=== PATIENT | male | born 1935 | race Caucasian/White ===

== ENCOUNTER → 2016-11-06 | Outpatient (REF) | payer MEDICARE | LOC: M LABDRAWP 15:37 | PROVIDERS: ATTEND Urology | DX: R31.9 Hematuria, unspecified (principal); Z85.46 Personal history of malignant neoplasm of prostate ==

== ENCOUNTER 2016-12-11 07:48 | Emergency (ER) | payer MEDICARE ==
[~2016-12-11] VITALS: Ht 172.7 cm; Wt 93.0 kg
[2016-12-11] MEDS ORDERED: CIAL5TAB (08:14)
[2016-12-11] MEDS ORDERED: HYDR25T (08:14)
[2016-12-11] MEDS ORDERED: CARV6.25 PO (08:14)
[2016-12-11] MEDS ORDERED: [UNRECOGNIZED DRUG - CODE] (08:14)
[2016-12-11] MEDS ORDERED: LATA5OPD (08:14)
[2016-12-11] MEDS ORDERED: HYDR25TA6 (08:14)
[2016-12-11 08:20] VITALS: BP 162/100
[2016-12-11] MEDS ORDERED: ISOVUE-370 76% 100ML VIAL (Q9967) As Ordered ONE (10:46)
--- NOTE | 2016-12-11 11:29 | REP ---
Clinical: Abdominal pain and hematuria. Technique: Axial precontrast, contrast enhanced, and delayed images of the abdomen and pelvis using 100 ml Isovue 370 intravenous contrast material with coronal and sagittal re-formations. Comparison: 12/08/2015. Findings: Evaluation of the urinary tract system demonstrates atrophic, but relatively normal appearance of the kidneys and ureters with sub centimeter simple cysts, but no evidence for nephrolithiasis, hydroureternephrosis or obstructing ureteral calculi. Evaluation of the bladder demonstrates a Santos catheter and small amount of hemorrhagic debris which may be related to catheterization. Liver, spleen, pancreas, gallbladder, and bilateral adrenal glands are normal. The enteric system is without obstruction or acute inflammatory process. Colonic diverticulosis noted without acute diverticulitis. Pelvis demonstrates previous prostatic seeding as well as large fat containing inguinal hernias (right greater than left). No ascites. No free air. No intraperitoneal or retroperitoneal adenopathy. No mass lesion. Vasculature without aneurysm or dissection. Musculoskeletal structures demonstrate chronic degenerative changes and stable small sclerotic foci unchanged compared to 12/08/2015. Lung bases clear. Impression: 1. Small amount of hemorrhagic debris within the bladder may be related to Santos catheterization and possibly related to findings of hematuria. Kidneys demonstrate cortical atrophic changes without further urinary tract abnormality. 2. Diverticulosis without acute diverticulitis. 3. Large bilateral fat containing inguinal hernias. 4. No further acute intra-abdominal or pelvic pathology appreciated. Signed by Joel Richards MD 12/11/2016 11:20 A
--- NOTE | 2016-12-12 20:05 | ED PDOC ---
Post-Departure Follow-Up devon bhatt and guerita faxed formal report of ct abd/p for fu Xochitl Pelayo MD Dec 12, 2016 20:05
== END 2016-12-11 12:53 | disposition home or self-care (01) ==
LOC: M ED 09:02
DX: R31.9 Hematuria, unspecified (principal); R33.9 Retention of urine, unspecified
CPT/HCPCS: 51702; 74178; 99284; Q9967

== ENCOUNTER → 2016-12-21 | Outpatient (REF) | payer MEDICARE ==
[~2016-12-21] MED LIST: CARV6.25 PO; CIAL5TAB; HYDR25T; HYDR25TA6; LATA5OPD; [UNRECOGNIZED DRUG - CODE]
[2016-12-21 11:48] LABS: MICROSCOPIC INDICATED? MAN YES (NO)
[2016-12-21 11:57] LABS: BACTERIA, URINE LARGE AMOUNT; MICROSCOPIC EXAM PERFORMED; RBC, URINE TNTC /hpf (0-3); WBC, URINE TNTC /hpf (0-3)
== END ==
LOC: M SFHCPLAZ 11:23
PROVIDERS: ATTEND Family Medicine
DX: R35.0 Frequency of micturition (principal)
CPT/HCPCS: 81000; 87088; 87186; G0463

== ENCOUNTER → 2017-02-15 | Outpatient (REF) | payer MEDICARE ==
[2017-02-15 14:21] LABS: BACTERIA, URINE NONE SEEN; HYALINE CAST, URINE NONE SEEN /lpf (0-1); MICROSCOPIC EXAM PERFORMED; RBC, URINE 0-1 /hpf (0-3); SQUAMOUS EPITHELIAL CELL URINE NONE SEEN /hpf (SMALL AMT)
== END ==
LOC: M LAB REF 11:35
PROVIDERS: ATTEND Urology
DX: R31.9 Hematuria, unspecified (principal)

== ENCOUNTER → 2017-06-05 | Outpatient (REF) | payer MEDICARE ==
[~2017-06-05] MED LIST changes: +HYDR-3363; -HYDR25T
[2017-06-05 12:09] LABS: MEAN CORPUSCULAR HEMOGLOBIN 31.2 pg (27.0-33.0); MEAN CORPUSCULAR HGB CONC 34.5 g/dl (32.0-36.5); MEAN CORPUSCULAR VOLUME 90.6 fl (80.0-96.0); RED CELL DISTRIBUTION WIDTH 12.7 % (11.5-14.5); WHITE BLOOD COUNT 5.3 K/mm3 (4.0-10.0)
[2017-06-05 12:26] LABS: ALBUMIN 3.6 GM/DL (3.2-5.2); ALBUMIN/GLOBULIN RATIO 1.33 (1.00-1.93); ALKALINE PHOSPHATASE 68 U/L (45-117); ALT/SGPT 29 U/L (12-78); ANION GAP 9 MEQ/L (8-16); AST/SGOT 17 U/L (15-37); BILIRUBIN,TOTAL 0.9 MG/DL (0.2-1.0); BLOOD UREA NITROGEN 23 MG/DL (7-18); CALCIUM LEVEL 8.5 MG/DL (8.8-10.2); CARBON DIOXIDE LEVEL 31 MEQ/L (21-32); CHLORIDE LEVEL 104 MEQ/L (98-107); CHOLESTEROL LEVEL 176 MG/DL (<200); CREATININE FOR GFR 1.05 MG/DL (0.70-1.30); GLOMERULAR FILTRATION RATE > 60.0 (>35); GLUCOSE, FASTING 90 MG/DL (83-110); POTASSIUM SERUM 3.7 MEQ/L (3.5-5.1); SODIUM LEVEL 144 MEQ/L (136-145); TOTAL PROTEIN 6.3 GM/DL (6.4-8.2); TRIGLYCERIDES LEVEL 123 MG/DL (<150)
== END ==
LOC: M SFHCPLAZ 08:33
PROVIDERS: ATTEND Family Medicine
DX: I25.9 Chronic ischemic heart disease, unspecified (principal); E78.00 Pure hypercholesterolemia, unspecified; Z85.820 Personal history of malignant melanoma of skin

== ENCOUNTER 2017-06-29 23:27 | Emergency (ER) | payer MEDICARE ==
[~2017-06-29] VITALS: Ht 172.7 cm; Wt 87.2 kg
[2017-06-29 23:28] VITALS: BP 201/111
[2017-06-30] MEDS ORDERED: NS 500 ML IV ONE (00:30)
[2017-06-30] MEDS ORDERED: MORPHINE 2 MG/ML 1ML SYRINGE IV ONE (00:30)
[2017-06-30 00:32] LABS: BASO # 0.1 10^3/uL (0.0-0.2); BASO % 0.7 % (0.0-1.0); EOS # 0.1 10^3/uL (0.0-0.50); IMMATURE GRANULOCYTE % 0.7 % (0-0); LYMPH # 1.8 10^3/uL (1.5-4.5); LYMPH % 25.6 % (24.0-44.0); MEAN CORPUSCULAR HEMOGLOBIN 29.9 pg (27.0-33.0); MEAN CORPUSCULAR HGB CONC 33.8 g/dl (32.0-36.5); MEAN CORPUSCULAR VOLUME 88.4 fl (80.0-96.0); MONO % 14.7 % (0.0-5.0); NEUTROPHILS # 3.9 10^3/uL (1.8-7.7); NEUTROPHILS % 56.3 % (36.0-66.0); PLATELET COUNT, AUTOMATED 202 10^3/uL (150-450); RED CELL DISTRIBUTION WIDTH 13.2 % (11.5-14.5)
[2017-06-30 00:56] LABS: INR 0.91
[2017-06-30 00:57] LABS: ANION GAP 5 MEQ/L (8-16); BLOOD UREA NITROGEN 24 MG/DL (7-18); CALCIUM LEVEL 8.8 MG/DL (8.8-10.2); CARBON DIOXIDE LEVEL 31 MEQ/L (21-32); CHLORIDE LEVEL 105 MEQ/L (98-107); CREATININE FOR GFR 1.07 MG/DL (0.70-1.30); GLOMERULAR FILTRATION RATE > 60.0 (>35); GLUCOSE, FASTING 107 MG/DL (83-110); POTASSIUM SERUM 3.1 MEQ/L (3.5-5.1); SODIUM LEVEL 141 MEQ/L (136-145)
--- NOTE | 2017-07-02 07:49 | ECGEPIP ---
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
== END 2017-06-30 03:23 | disposition home or self-care (01) ==
LOC: M ED 23:27
DX: R31.9 Hematuria, unspecified (principal); R33.9 Retention of urine, unspecified; I10 Essential (primary) hypertension; I25.9 Chronic ischemic heart disease, unspecified; H40.9 Unspecified glaucoma; Z85.46 Personal history of malignant neoplasm of prostate; Z79.899 Other long term (current) drug therapy; Z88.0 Allergy status to penicillin; Z88.2 Allergy status to sulfonamides; Z87.891 Personal history of nicotine dependence

== ENCOUNTER → 2017-07-06 | Outpatient (REF) | payer MEDICARE ==
[2017-07-06 19:33] LABS: MEAN CORPUSCULAR HEMOGLOBIN 29.7 pg (27.0-33.0); MEAN CORPUSCULAR HGB CONC 33.3 g/dl (32.0-36.5); MEAN CORPUSCULAR VOLUME 89.3 fl (80.0-96.0); PLATELET COUNT, AUTOMATED 271 10^3/uL (150-450); RED CELL DISTRIBUTION WIDTH 13.3 % (11.5-14.5); WHITE BLOOD COUNT 6.5 10^3/uL (4.0-10.0)
[2017-07-06 19:36] LABS: CALCIUM LEVEL 9.3 MG/DL (8.8-10.2); CREATININE FOR GFR 1.25 MG/DL (0.70-1.30); GLOMERULAR FILTRATION RATE 58.9 (>35); MAGNESIUM LEVEL 2.2 MG/DL (1.8-2.4); POTASSIUM SERUM 3.9 MEQ/L (3.5-5.1)
== END ==
LOC: M SFHCADAM 13:43
PROVIDERS: ATTEND Family Medicine
DX: R31.0 Gross hematuria (principal); E87.6 Hypokalemia; Z23 Encounter for immunization
CPT/HCPCS: 80048; 83735; 85027; 90662; G0008; G0463

== ENCOUNTER → 2017-09-07 | Outpatient (REF) | payer MEDICARE | LOC: M LABDRAWP 11:27 | PROVIDERS: ATTEND Urology | DX: R31.9 Hematuria, unspecified (principal); Z85.46 Personal history of malignant neoplasm of prostate ==

== ENCOUNTER → 2017-10-11 | Outpatient (REF) | payer MEDICARE ==
[2017-10-11 14:44] LABS: APPEARANCE, URINE MANUAL TURBID (CLEAR); COLOR, URINE MANUAL RED (YELLOW); HEMATOCRIT 50.8 % (42.0-52.0); HEMOGLOBIN 16.8 g/dl (14.0-18.0); MEAN CORPUSCULAR HEMOGLOBIN 29.6 pg (27.0-33.0); MEAN CORPUSCULAR HGB CONC 33.1 g/dl (32.0-36.5); MEAN CORPUSCULAR VOLUME 89.4 fl (80.0-96.0); PLATELET COUNT, AUTOMATED 233 10^3/uL (150-450); RED BLOOD COUNT 5.68 10^6/uL (4.30-6.10); RED CELL DISTRIBUTION WIDTH 13.2 % (11.5-14.5); WHITE BLOOD COUNT 6.8 10^3/uL (4.0-10.0)
[2017-10-11 14:45] LABS: BILIRUBIN, URINE MANUAL NEGATIVE (NEGATIVE); BLOOD URINE MANUAL POSITIVE (NEGATIVE); GLUCOSE, URINE (UA) MANUAL NEGATIVE (NEGATIVE); KETONE, URINE MANUAL NEGATIVE (NEGATIVE); LEUKOCYTE ESTERASE, URINE MAN POSITIVE (NEGATIVE); MICROSCOPIC INDICATED? MAN YES (NO); NITRITE, URINE MANUAL NEGATIVE (NEGATIVE); PROTEIN, URINE MANUAL 2+ mg/dL (NEGATIVE); SPECIFIC GRAVITY,URINE MANUAL 1.015 (1.002-1.035); UROBILINOGEN, URINE MANUAL NORMAL (NORMAL)
[2017-10-11 14:54] LABS: BACTERIA, URINE SMALL AMOUNT; MICROSCOPIC EXAM PERFORMED; RBC, URINE TNTC /hpf (0-3); SQUAMOUS EPITHELIAL CELL URINE NONE SEEN /hpf (SMALL AMT)
[2017-10-11 14:55] LABS: HYALINE CAST, URINE NONE SEEN /lpf (0-1)
[2017-10-11 14:57] LABS: ANION GAP 6 MEQ/L (8-16); BLOOD UREA NITROGEN 18 MG/DL (7-18); CARBON DIOXIDE LEVEL 33 MEQ/L (21-32); CHLORIDE LEVEL 104 MEQ/L (98-107); CREATININE FOR GFR 1.21 MG/DL (0.70-1.30); GLOMERULAR FILTRATION RATE > 60.0 (>35); GLUCOSE, FASTING 109 MG/DL (70-100); POTASSIUM SERUM 3.9 MEQ/L (3.5-5.1); SODIUM LEVEL 143 MEQ/L (136-145)
== END ==
LOC: M SFHCADAM 09:02
DX: R31.0 Gross hematuria (principal)
CPT/HCPCS: 80048

== ENCOUNTER → 2017-12-17 | Outpatient (REF) | payer MEDICARE ==
[2017-12-17 11:43] LABS: HEMATOCRIT 47.9 % (42.0-52.0); HEMOGLOBIN 15.7 g/dl (13.5-17.5); MEAN CORPUSCULAR HEMOGLOBIN 29.2 pg (27.0-33.0); MEAN CORPUSCULAR HGB CONC 32.8 g/dl (32.0-36.5); PLATELET COUNT, AUTOMATED 279 10^3/uL (150-450); RED BLOOD COUNT 5.38 10^6/uL (4.30-6.10); RED CELL DISTRIBUTION WIDTH 13.3 % (11.5-14.5); WHITE BLOOD COUNT 5.9 10^3/uL (4.0-10.0)
[2017-12-17 12:28] LABS: ALBUMIN 3.8 GM/DL (3.2-5.2); ALBUMIN/GLOBULIN RATIO 1.27 (1.00-1.93); ALKALINE PHOSPHATASE 83 U/L (45-117); ALT/SGPT 22 U/L (12-78); ANION GAP 7 MEQ/L (8-16); AST/SGOT 15 U/L (7-37); BILIRUBIN,TOTAL 0.8 MG/DL (0.2-1.0); BLOOD UREA NITROGEN 27 MG/DL (7-18); CALCIUM LEVEL 8.9 MG/DL (8.8-10.2); CARBON DIOXIDE LEVEL 30 MEQ/L (21-32); CHLORIDE LEVEL 109 MEQ/L (98-107); CHOLESTEROL LEVEL 177 MG/DL (<200); CHOLESTEROL RISK RATIO 4.657 (<5); CREATININE FOR GFR 1.17 MG/DL (0.70-1.30); GLOMERULAR FILTRATION RATE > 60.0 (>35); GLUCOSE, FASTING 91 MG/DL (70-100); HDL CHOLESTEROL 38 MG/DL (>40); LDL CHOLESTEROL 113.8 MG/DL (<100); NON-HDL-C 139 MG/DL; PROSTATIC SPECIFIC AG MONITOR < 0.01 NG/ML (< 4.0); SODIUM LEVEL 146 MEQ/L (136-145); TOTAL PROTEIN 6.8 GM/DL (6.4-8.2); TRIGLYCERIDES LEVEL 126 MG/DL (<150)
== END ==
LOC: M SFHCPLAZ 09:07
DX: I25.2 Old myocardial infarction (principal); E78.00 Pure hypercholesterolemia, unspecified; C61 Malignant neoplasm of prostate
CPT/HCPCS: 80053

== ENCOUNTER 2018-01-10 23:45 | Emergency (ER) | payer MEDICARE ==
[2018-01-11] MEDS: LIDOCAINE 2% JELLY 30 ML TOP (02:07)
== END 2018-01-11 03:00 | disposition home or self-care (01) ==
LOC: M ED 23:45
DX: R33.9 Retention of urine, unspecified (principal); I25.10 Atherosclerotic heart disease of native coronary artery without angina pectoris; I10 Essential (primary) hypertension; Z95.5 Presence of coronary angioplasty implant and graft; Z98.890 Other specified postprocedural states; Z88.0 Allergy status to penicillin; Z88.8 Allergy status to other drugs, medicaments and biological substances; Z88.2 Allergy status to sulfonamides
CPT/HCPCS: 51703

== ENCOUNTER 2018-01-11 10:50 | Emergency (ER) | payer MEDICARE ==
[2018-01-11 12:21] LABS: KETONE, URINE AUTO RFX TRACE mg/dL (NEGATIVE); LEUKOCYTE ESTERASE UR AUTO RFX NEGATIVE (NEGATIVE); NITRITE, URINE AUTO RFX NEGATIVE (NEGATIVE); RBC, URINE AUTO RFX TNTC /HPF (0-3); SPECIFIC GRAVITY UR AUTO RFX 1.009 (1.002-1.035); SQUAM EPITHELIAL CELL UR AURFX 0 /HPF (0-6)
[2018-01-11 12:53] LABS: WBC, URINE AUTO RFX 11 /HPF (0-3)
== END 2018-01-11 13:13 | disposition home or self-care (01) ==
LOC: M ED 10:50
DX: T83.098A Other mechanical complication of other urinary catheter, initial encounter (principal); R31.9 Hematuria, unspecified; I25.10 Atherosclerotic heart disease of native coronary artery without angina pectoris; I25.2 Old myocardial infarction; I10 Essential (primary) hypertension; Z79.899 Other long term (current) drug therapy; Z95.1 Presence of aortocoronary bypass graft; Z98.890 Other specified postprocedural states; Z92.3 Personal history of irradiation; Z85.46 Personal history of malignant neoplasm of prostate; Z87.891 Personal history of nicotine dependence; Z88.0 Allergy status to penicillin; Z88.2 Allergy status to sulfonamides; Z88.8 Allergy status to other drugs, medicaments and biological substances
CPT/HCPCS: 81001

== ENCOUNTER → 2018-03-14 | Outpatient (REF) | payer MEDICARE ==
[2018-03-14 19:57] LABS: APPEARANCE, URINE HAZY (CLEAR); BACTERIA, URINE AUTO 1+ (NEGATIVE); BILIRUBIN, URINE AUTO NEGATIVE (NEGATIVE); BLOOD, URINE BLOOD 1+ (NEGATIVE); COLOR, URINE YELLOW (YELLOW); GLUCOSE, URINE (UA) AUTO NEGATIVE (NEGATIVE); KETONE, URINE AUTO NEGATIVE (NEGATIVE); LEUKOCYTE ESTERASE, URINE AUTO 1+ (NEGATIVE); MUCUS, URINE SMALL (NEGATIVE); NITRITE, URINE AUTO POSITIVE (NEGATIVE); PROTEIN, URINE AUTO NEGATIVE (NEGATIVE); RBC, URINE AUTO 20 /HPF (0-3); SQUAMOUS EPITHELIAL CELL UR AU 0 /HPF (0-6); UROBILINOGEN, URINE AUTO 0.2 mg/dL (0.0-2.0); WBC, URINE AUTO 63 /HPF (0-3)
[2018-03-14 19:59] LABS: PROSTATIC SPECIFIC AG MONITOR < 0.01 NG/ML (< 4.0)
== END ==
LOC: M LABDRWAD 19:17
DX: R31.9 Hematuria, unspecified (principal); Z85.46 Personal history of malignant neoplasm of prostate
CPT/HCPCS: 84153

== ENCOUNTER → 2018-04-02 | Outpatient (REF) | payer MEDICARE | LOC: M LABDRWAD 10:34 | DX: R31.0 Gross hematuria (principal) | CPT/HCPCS: 87186 ==

== ENCOUNTER → 2018-04-17 | Outpatient (REF) | payer MEDICARE | LOC: M SFHCADAM 12:13 | DX: N39.0 Urinary tract infection, site not specified (principal) | CPT/HCPCS: 87086 ==

== ENCOUNTER → 2018-08-28 | Outpatient (CLI) | payer MEDICARE ==
[~2018-08-28] MED LIST changes: +FLOM0.4C39 PO
--- NOTE | 2018-08-28 16:51 | REP ---
KUB: Three views presented. History: Eructation. Findings: The bowel gas pattern is normal. There is degenerative disc and facet disease in the thoracolumbar spine. A complex curvature is seen in the lumbar spine dextroconvex in the upper and levoconvex in the lower. There is a bone island in the iliac bone on the right. There are metallic radiotherapy seeds in the prostate. Psoas margins are symmetric. No mass or organomegaly is seen. Impression: No acute abnormality. Electronically Signed by Kory Azevedo MD 08/28/2018 05:10 P
== END ==
LOC: M ADAMS 14:13
PROVIDERS: ATTEND Family Medicine
DX: M51.35 Other intervertebral disc degeneration, thoracolumbar region (principal); M53.86 Other specified dorsopathies, lumbar region; R14.2 Eructation
CPT/HCPCS: 74018; G0463

== ENCOUNTER → 2018-10-25 | Outpatient (REF) | payer MEDICARE | LOC: M SFHCPLAZ 19:02 | PROVIDERS: ATTEND Dermatology | DX: D22.30 Melanocytic nevi of unspecified part of face (principal) ==

== ENCOUNTER → 2018-12-11 | Outpatient (REF) | payer MEDICARE ==
[2018-12-11 12:22] LABS: HEMATOCRIT 50.9 % (42.0-52.0); HEMOGLOBIN 16.9 g/dl (13.5-17.5); MEAN CORPUSCULAR HEMOGLOBIN 29.8 pg (27.0-33.0); MEAN CORPUSCULAR HGB CONC 33.2 g/dl (32.0-36.5); MEAN CORPUSCULAR VOLUME 89.8 fl (80.0-96.0); PLATELET COUNT, AUTOMATED 242 10^3/uL (150-450); RED BLOOD COUNT 5.67 10^6/uL (4.30-6.10); WHITE BLOOD COUNT 6.3 10^3/uL (4.0-10.0)
[2018-12-11 12:52] LABS: ALT/SGPT 28 U/L (12-78); BLOOD UREA NITROGEN 21 MG/DL (7-18); CARBON DIOXIDE LEVEL 33 MEQ/L (21-32); CHLORIDE LEVEL 102 MEQ/L (98-107); CHOLESTEROL LEVEL 190 MG/DL (<200); CHOLESTEROL RISK RATIO 4.634 (<5); CREATININE FOR GFR 1.16 MG/DL (0.70-1.30); GLOMERULAR FILTRATION RATE > 60.0 (>35); GLUCOSE, FASTING 96 MG/DL (70-100); HDL CHOLESTEROL 41 MG/DL (>40); LDL CHOLESTEROL 120 MG/DL (<100); NON-HDL-C 149 MG/DL; POTASSIUM SERUM 4.5 MEQ/L (3.5-5.1); PROSTATIC SPECIFIC AG MONITOR < 0.01 NG/ML (< 4.00); SODIUM LEVEL 141 MEQ/L (136-145); TOTAL PROTEIN 6.6 GM/DL (6.4-8.2); TRIGLYCERIDES LEVEL 143 MG/DL (<150)
== END ==
LOC: M SFHCADAM 08:20
PROVIDERS: ATTEND Family Medicine
DX: I25.9 Chronic ischemic heart disease, unspecified (principal); N02.9 Recurrent and persistent hematuria with unspecified morphologic changes; E78.00 Pure hypercholesterolemia, unspecified; R73.03 Prediabetes; C61 Malignant neoplasm of prostate; R31.9 Hematuria, unspecified

== ENCOUNTER → 2019-05-02 | Outpatient (REF) | payer MEDICARE ==
[~2019-05-02] MED LIST changes: +LATA0.0013; -LATA5OPD
[2019-05-02 11:26] LABS: HEMATOCRIT 49.5 % (42.0-52.0); HEMOGLOBIN 16.5 g/dl (13.5-17.5); MEAN CORPUSCULAR HEMOGLOBIN 29.9 pg (27.0-33.0); MEAN CORPUSCULAR HGB CONC 33.3 g/dl (32.0-36.5); MEAN CORPUSCULAR VOLUME 89.8 fl (80.0-96.0); PLATELET COUNT, AUTOMATED 233 10^3/uL (150-450); RED BLOOD COUNT 5.51 10^6/uL (4.30-6.10); WHITE BLOOD COUNT 5.9 10^3/uL (4.0-10.0)
[2019-05-02 11:58] LABS: CALCIUM LEVEL 8.9 MG/DL (8.8-10.2); CREATININE FOR GFR 1.37 MG/DL (0.70-1.30); GLOMERULAR FILTRATION RATE 52.7 (>35); POTASSIUM SERUM 3.9 MEQ/L (3.5-5.1)
== END ==
LOC: M SFHCADAM 08:52
PROVIDERS: ATTEND Family Medicine
DX: C61 Malignant neoplasm of prostate (principal); I11.9 Hypertensive heart disease without heart failure

== ENCOUNTER → 2019-06-03 | Outpatient (REF) | payer MEDICARE | LOC: M SFHCPLAZ 17:10 | PROVIDERS: ATTEND Dermatology | DX: L57.0 Actinic keratosis (principal) ==

== ENCOUNTER → 2019-11-04 | Outpatient (REF) | payer MEDICARE ==
[2019-11-04 13:28] LABS: HEMATOCRIT 51.2 % (42.0-52.0); HEMOGLOBIN 16.6 g/dl (13.5-17.5); MEAN CORPUSCULAR HEMOGLOBIN 29.6 pg (27.0-33.0); MEAN CORPUSCULAR HGB CONC 32.4 g/dl (32.0-36.5); MEAN CORPUSCULAR VOLUME 91.4 fl (80.0-96.0); PLATELET COUNT, AUTOMATED 261 10^3/uL (150-450); WHITE BLOOD COUNT 5.6 10^3/uL (4.0-10.0)
[2019-11-04 13:44] LABS: ALT/SGPT 29 U/L (12-78); BILIRUBIN,TOTAL 1.2 MG/DL (0.2-1.0); BLOOD UREA NITROGEN 24 MG/DL (7-18); CALCIUM LEVEL 8.8 MG/DL (8.8-10.2); CARBON DIOXIDE LEVEL 32 MEQ/L (21-32); CHLORIDE LEVEL 105 MEQ/L (98-107); CHOLESTEROL LEVEL 192 MG/DL (<200); CREATININE FOR GFR 1.22 MG/DL (0.70-1.30); GLOMERULAR FILTRATION RATE > 60.0 (>35); GLUCOSE, FASTING 99 MG/DL (70-100); HDL CHOLESTEROL 40 MG/DL (>40); LDL CHOLESTEROL 123 MG/DL (<100); NON-HDL-C 152 MG/DL; POTASSIUM SERUM 3.8 MEQ/L (3.5-5.1); PROSTATIC SPECIFIC AG MONITOR < 0.01 NG/ML (< 4.00); SODIUM LEVEL 142 MEQ/L (136-145); TRIGLYCERIDES LEVEL 145 MG/DL (<150)
[2019-11-04 14:41] LABS: HEMOGLOBIN A1c 6.1 %
== END ==
LOC: M SFHCADAM 09:17
PROVIDERS: ATTEND Family Medicine
DX: I86.8 Varicose veins of other specified sites (principal); R73.03 Prediabetes; E78.5 Hyperlipidemia, unspecified; C61 Malignant neoplasm of prostate

== ENCOUNTER → 2019-11-12 | Outpatient (REF) | payer MEDICARE ==
[2019-11-12 15:00] LABS: APPEARANCE, URINE CLOUDY (CLEAR); BACTERIA, URINE AUTO 3+ (NEGATIVE); BILIRUBIN, URINE AUTO NEGATIVE (NEGATIVE); BLOOD, URINE BLOOD 3+ (NEGATIVE); COLOR, URINE YELLOW (YELLOW); GLUCOSE, URINE (UA) AUTO NEGATIVE (NEGATIVE); KETONE, URINE AUTO NEGATIVE (NEGATIVE); LEUKOCYTE ESTERASE, URINE AUTO 2+ (NEGATIVE); MUCUS, URINE SMALL (NEGATIVE); NITRITE, URINE AUTO NEGATIVE (NEGATIVE); PROTEIN, URINE AUTO 1+ mg/dL (NEGATIVE); RBC, URINE AUTO TNTC /HPF (0-3); SPECIFIC GRAVITY URINE AUTO 1.015 (1.002-1.035); SQUAMOUS EPITHELIAL CELL UR AU 0 /HPF (0-6); UROBILINOGEN, URINE AUTO 0.2 mg/dL (0.0-2.0); WBC, URINE AUTO 180 /HPF (0-3)
== END ==
LOC: M SFHCADAM 09:59
PROVIDERS: ATTEND Family Medicine
DX: R30.0 Dysuria (principal)

== ENCOUNTER 2020-02-13 17:55 | Inpatient (IN) | payer MEDICARE, OTHER ==
[~2020-02-13] VITALS: Ht 167.6 cm; Wt 89.0 kg
[~2020-02-13 17:55] MED LIST changes: -HYDR-3363; +HYDR-3363 PO; -[UNRECOGNIZED DRUG - CODE]; +[UNRECOGNIZED DRUG - CODE] TOP
[2020-02-13 18:37] LABS: BASO % 0.1 % (0.0-1.0); HEMATOCRIT 48.8 % (42.0-52.0); HEMOGLOBIN 16.5 g/dl (13.5-17.5); LYMPH # 0.4 10^3/uL (1.5-5.0); LYMPH % 4.3 % (24.0-44.0); MEAN CORPUSCULAR HEMOGLOBIN 30.1 pg (27.0-33.0); MEAN CORPUSCULAR HGB CONC 33.8 g/dl (32.0-36.5); MEAN CORPUSCULAR VOLUME 88.9 fl (80.0-96.0); MONO # 0.3 10^3/uL (0.0-0.8); MONO % 3.6 % (0.0-5.0); NEUTROPHILS # 8.1 10^3/uL (1.5-8.5); NEUTROPHILS % 91.8 % (36.0-66.0); PLATELET COUNT, AUTOMATED 221 10^3/uL (150-450); RED BLOOD COUNT 5.49 10^6/uL (4.30-6.10); WHITE BLOOD COUNT 8.9 10^3/uL (4.0-10.0)
[2020-02-13] MEDS ORDERED: GI COCKTAIL 50ML BTL(HYOSCYAMINE/MAALOX/LIDOCAINE VISCOUS)(1:3:1) PO ONE (18:45)
[2020-02-13 19:08] LABS: ALBUMIN 3.8 GM/DL (3.2-5.2); ALT/SGPT 800 U/L (12-78); BILIRUBIN,DIRECT 2.5 MG/DL (0.0-0.2); BLOOD UREA NITROGEN 27 MG/DL (7-18); CALCIUM LEVEL 9.2 MG/DL (8.8-10.2); CARBON DIOXIDE LEVEL 29 MEQ/L (21-32); CHLORIDE LEVEL 104 MEQ/L (98-107); GLOMERULAR FILTRATION RATE > 60.0 (>35); GLUCOSE, FASTING 125 MG/DL (70-100); LIPASE 88 U/L (73-393); NT-PRO BNP 246 PG/ML (<450); POTASSIUM SERUM 3.5 MEQ/L (3.5-5.1); SODIUM LEVEL 140 MEQ/L (136-145); TOTAL PROTEIN 6.5 GM/DL (6.4-8.2)
--- NOTE | 2020-02-13 20:54 | REPVR ---
PROCEDURE INFORMATION: Exam: US Abdomen Limited, Right Upper Quadrant Exam date and time: 02/13/2020 8:37 PM Age: 84 years old Clinical indication: Abdominal pain; Acute; Additional info: Elevated lfts TECHNIQUE: Imaging protocol: Real-time ultrasound of the abdomen with image documentation. Examination was focused on the right upper quadrant. COMPARISON: No relevant prior studies available. FINDINGS: Liver: Normal. No masses. Gallbladder: Irregularly-shaped echogenic masslike lesion within the lumen of the gallbladder which does not move with change inpatient position. Finding likely represents a mixture of sludge and gallstones. A gallbladder mass is not absolutely excluded. Common bile duct: The common bile duct measures 6.2 mm. No mass or choledocholithiasis. Pancreas: Visualized pancreas is unremarkable. Right kidney: Right kidney measures 11.8 x 4.7 x 4.8 cm. Small upper pole cyst measures 1.5 x 0.8 x 0.9 cm. No complex features demonstrated. IMPRESSION: Irregularly-shaped echogenic masslike lesion within the lumen of the gallbladder which does not move with change inpatient position. Finding likely represents a mixture of sludge and gallstones. A gallbladder mass is not absolutely excluded. Electronically signed by: Pete Dacosta On 02/13/2020 20:53:30 PM
[2020-02-13] MEDS ORDERED: ISOVUE-370 76% 100ML VIAL As Ordered ONE (20:55)
--- NOTE | 2020-02-13 21:57 | REPVR ---
PROCEDURE INFORMATION: Exam: CT Abdomen And Pelvis With Contrast Exam date and time: 02/13/2020 9:07 PM Age: 84 years old Clinical indication: Abdominal pain; Generalized; Additional info: Chest pain TECHNIQUE: Imaging protocol: Computed tomography of the abdomen and pelvis with intravenous contrast. Radiation optimization: All CT scans at this facility use at least one of these dose optimization techniques: automated exposure control; mA and/or kV adjustment per patient size (includes targeted exams where dose is matched to clinical indication); or iterative reconstruction. Contrast material: ISOVUE 370; Contrast volume: 100 ml; Contrast route: IV; COMPARISON: CT ABD PELVIS W/O FOL BY WIT 12/11/2016 10:49 AM FINDINGS: Lungs: No suspicious mass or airspace process in the visualized lung bases. Liver: Liver appears normal with no focal abnormality. Gallbladder and bile ducts: Gallbladder is present and shows no evidence of gallstone. Pancreas: Pancreas appears normal. No focal mass or peripancreatic inflammation. Spleen: Spleen appears homogeneous without focal mass. Adrenals: Adrenal glands are normal in appearance. Kidneys and ureters: Kidneys appear normal, with no stone, solid mass or hydronephrosis. Stomach and bowel: No evidence of small bowel obstruction. Diverticular changes are present within the colon without inflammation. Appendix: Normal caliber appendix is identified, with no adjacent inflammation. Intraperitoneal space: No pneumoperitoneum. Vasculature: Atherosclerotic calcifications in the coronary vessels. Atherosclerotic change present in the aorta, without aneurysm. Main portal and splenic veins enhance normally. Lymph nodes: No enlarged lymph nodes. Bladder: Urinary bladder demonstrates questionable subtle mural nodularity on the right, axial image [id number]. Bones/joints: Degenerative changes are seen in the lumbar spine with disc height loss, endplate osteophytes and hypertrophic facet arthropathy. Soft tissues: Prostate brachytherapy implants are present Bilateral fat-containing inguinal hernias are present. IMPRESSION: 1. No acute surgical or inflammatory abdominal or pelvic process. No explanation for acute symptoms. 2. Possible enhancing mural nodularity of the right bladder wall measuring 2 x 0.7 cm 3. Extensive colonic diverticulosis. No active inflammation. Electronically signed by: Moncho Flores On 02/13/2020 21:56:41 PM
--- NOTE | 2020-02-13 21:57 | REPVR ---
PROCEDURE INFORMATION: Exam: CT Angiography Chest With Contrast Exam date and time: 02/13/2020 9:07 PM Age: 84 years old Clinical indication: Chest pain TECHNIQUE: Imaging protocol: Computed tomographic angiography of the chest with intravenous contrast. 3D rendering: MIP and/or 3D reconstructed images were created by the technologist. Radiation optimization: All CT scans at this facility use at least one of these dose optimization techniques: automated exposure control; mA and/or kV adjustment per patient size (includes targeted exams where dose is matched to clinical indication); or iterative reconstruction. Contrast material: ISOVUE 370; Contrast volume: 100 ml; Contrast route: IV; COMPARISON: CT ANGIO CHEST 04/27/2013 8:35 AM FINDINGS: Limitations: Patient respiratory motion. Pulmonary arteries: No convincing evidence of pulmonary embolus. Aorta: Calcification involving the thoracic aorta without aneurysm or dissection. Lungs: There are bilateral nonspecific ground-glass densities. Scattered foci of linear atelectasis or scarring. No amanda alveolar consolidation. Previous partial left lower lobectomy. Pleural space: Unremarkable. No pneumothorax. No pleural effusion. Heart: Coronary artery calcification. Lymph nodes: Unremarkable. No enlarged lymph nodes. Pancreas: Pancreas is atrophic. Spleen: There are calcified granulomas involving the spleen. Bones/joints: There are degenerative changes involving the spine. There are degenerative changes involving both shoulders. Previous median sternotomy. Soft tissues: Multiple clips at the left axilla/chest wall. IMPRESSION: 1. Patient respiratory motion without definite pulmonary embolus. 2. Patchy bilateral ground-glass densities, nonspecific. Consider hypoventilatory change versus edema or pneumonitis. 3. Additional findings as above. Electronically signed by: Law Reaves On 02/13/2020 21:57:20 PM
[2020-02-14] MEDS ORDERED: HYDR25TAB PO (00:01)
[2020-02-14] MEDS ORDERED: LATA0.0015 OU (00:01)
--- NOTE | 2020-02-14 00:21 | ECGEPIP ---
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
[2020-02-14] MEDS ORDERED: GARL500C2 PO (00:46)
[2020-02-14] MEDS ORDERED: ASPI81TA85 PO (00:46)
[2020-02-14] MEDS ORDERED: ASCO500T PO (00:46)
--- NOTE | 2020-02-14 02:00 | HPEPDOC ---
[facility] Medical History & Physical Date of Admission February 14, 2020 Date of Service: February 14, 2020 Primary Care Physician: Stef Honeycutt MD Attending Physician: RACHAEL MAO MD History and Physical CHIEF COMPLAINT: epigastric pain HISTORY OF PRESENT ILLNESS: Elio Moralez is an 84-year-old male who presents with one-day history of epigastric pain. He states he felt well this morning when he woke up, but after a couple of hours he felt a sharp stabbing pain in the epigastric area. He states he has never had a pain like this before. This episode resolved within an hour and he went about his day. After a couple more hours, the pain returned and did not remit. He rates it a 10 out of 10, 10 pain at worst. He states it does not change with movement. The pain does not radiate to his shoulder, chest, arm, or jaw. He did eat breakfast this morning prior to the onset of the pain without any trouble. However, he notes he did not eat much else today. He denies nausea or vomiting. No changes in stool. He has noticed some abdominal distention today. He also notes that he has lost about 15 pounds over the past 2-3 months. He states this is intentional weight loss related to diet change with portion control. On evaluation in emergency room, serial troponin were negative and an EKG did not show any acute changes. CTA did not reveal any pulmonary embolus. Gallbladder ultrasound did reveal a possible gallstone versus mass. Laboratory evaluation revealed elevated liver enzymes and GGT level. PAST MEDICAL HISTORY: 1. Coronary artery disease status post CABG 4 2. Prostate cancer status post radiation 3. Melanoma status post resection. 4. Hypertension. 5. Hyperlipidemia with statin intolerance. 6. Gilbert's syndrome. 7. Bilateral inguinal hernias. 8. Degenerative disc disease. 9. Vestibular neuronitis. 10. Gross and microscopic hematuria secondary to prostate radiation and fair. Sees. PAST SURGICAL HISTORY: 1. CABG 4 2. Left upper lobectomy for benign mass. 3. Tonsillectomy and adenoidectomy. 4. Multiple melanoma resections. 5. Right inguinal hernia repair and subsequent revision. 6. Lymph node resection. 7. Prostate radiation SOCIAL HISTORY: Former smoker, occasional alcohol use, 1-2 times a month with 2-3 beers or glasses of wine, no illicit/IV drug use. . , Retired. FAMILY HISTORY: Father: CAD/heart disease Mother: CAD/heart disease Daughter: age 57 of lung cancer ALLERGIES: Please see below. REVIEW OF SYSTEMS: CONSTITUTIONAL: Positive for weight loss of about 15 pounds over the past 2-3 months, states this is related to change in diet and portion control. Denies fevers, chills, night sweats, fatigue. HEENT: Denies change in vision, change in hearing. CARDIOVASCULAR: Denies chest pain, palpitations, shortness of breath, lighthe adedness. RESPIRATORY: Denies dyspnea, cough, wheezing. GASTROINTESTINAL: Denies nausea, vomiting, diarrhea, constipation, blood in stool. GENITOURINARY: Endorses chronic intermittent gross hematuria. Denies dysuria, urinary frequency, urinary urgency. SKIN: Denies rash, lesions. MUSCULOSKELETAL: Denies joint pain or muscle aches. NEUROLOGICAL: Denies headache, dizziness, weakness. PSYCHIATRIC: Denies change in mood. HOME MEDICATIONS: Please see below. PHYSICAL EXAMINATION: VITAL SIGNS: See below. GENERAL: Alert, comfortable, in no acute distress HEENT: Normocephalic, atraumatic, PERRLA, EOMI, moist mucous membranes NECK: Supple, trachea midline, no lymphadenopathy, no JVD CARDIOVASCULAR: Regular rate and rhythm, normal S1 and S2. No murmurs, rubs, or gallops RESPIRATORY: Clear to auscultation bilaterally with equal air entry bilaterally. No wheezing, rhonchi, or rales. ABDOMEN: Soft, bowel sounds present. Abdomen appears distended and is tender to deep palpation of the epigastric and right upper quadrant regions. No rebound tenderness, guarding, or rigidity. EXTREMITIES: No cyanosis or edema. Pulses 2+/4 in bilateral upper and lower extremities SKIN: [place], warm, dry NEUROLOGIC: Alert and oriented 3 to person, place and time. No focal deficits appreciated PSYCHIATRIC: Mood and affect appropriate LABORATORY DATA: See below. MICROBIOLOGY: Please see below. ASSESSMENT: 84-year-old male, past medical history of prostate cancer and melanoma presents with 1 day history of epigastric pain and to 3 months of weight loss with mass vs gallstones seen on gallbladder ultrasound. PLAN: 1. Epigastric pain secondary to symptomatic gallstones versus gallbladder mass. Gallbladder ultrasound could not differentiate between gallstone or gallbladder mass. No evidence of cholecystitis. MRI with contrast of the abdomen ordered to rule out gallbladder mass. Patient does have a history of multiple cancers and recent weight loss. Elevated liver enzymes and GGT noted on lab work, obtain coagulation studies with morning labs to further evaluate liver function. Hepatitis panel pending. If gallbladder mass is present on MRI, consider consult for biopsy. 2. Possible UTI No urinary symptoms other than chronic intermittent hematuria. UA significant for nitrates, 1+ leukocyte esterase, white blood cells, and 1+ bacteria. Urine culture pending. Antibiotic coverage with IV ceftriaxone 3. History of hypertension and coronary artery disease. Continue home aspirin, carvedilol, hydrochlorothiazide. 4. History of anxiety. Continue home hydroxyzine at bedtime DVT prophylaxis: sc lovenox, teds and sequentials Disposition: Admitted inpatient to med/surg for further workup GME attestation: Patient was independently seen and examined, discussed with resident and agree with resident's assessment, plan and management. Vital Signs Vital Signs Date Time Temp Pulse Resp B/P (MAP) Pulse Ox O2 Delivery O2 Flow Rate FiO2 02/14/20 01:06 79 16 102/68 (79) 94 Room Air 02/13/20 18:06 100.3 Laboratory Data Labs 24H Laboratory Tests 2 02/13/20 18:26: Immature Granulocyte % (Auto) 0.2, Neutrophils (%) (Auto) 91.8H, Lymphocytes (%) (Auto) 4.3L, Monocytes (%) (Auto) 3.6, Eosinophils (%) (Auto) 0.0, Basophils (%) (Auto) 0.1, Neutrophils # (Auto) 8.1, Lymphocytes # (Auto) 0.4L, Monocytes # (Auto) 0.3, Eosinophils # (Auto) 0.0, Basophils # (Auto) 0.0, Nucleated Red Blood Cells % (auto) 0.0, Anion Gap 7L, Glomerular Filtration Rate > 60.0, Calcium Level 9.2, Total Bilirubin 4.0H, Direct Bilirubin 2.5H, Gamma Glutamyl Transferase 781H, Aspartate Amino Transf (AST/SGOT) 954H, Alanine Aminotransferase (ALT/SGPT) 800H, Alkaline Phosphatase 206H, XN-Nsr-Q-Type Natriuretic Peptide 246, Total Protein 6.5, Albumin 3.8, Albumin/Globulin Ratio 1.4, Lipase 88, Thyroid Stimulating Hormone (TSH) 1.370 02/13/20 18:32: POC Glucose (Misc Panel) 132H, POC Sodium (Misc Panel) 140, POC Potassium (Misc Panel) 3.4L, POC Chloride (Misc Panel) 99, POC Total CO2 (Misc Panel) 26.0, POC Blood Urea Nitrogen (Misc Panel 25, POC Ionized Calcium (Misc Panel) 4.7, POC Creatinine (Misc Panel) 1.2, POC Hematocrit (Misc Panel) 51.0 02/13/20 18:33: POC Troponin I (Misc) 0.00 02/13/20 18:44: Urine Color BASIL, Urine Appearance CLOUDYH, Urine pH 6.0, Urine Specific [place] 1.014, Urine Protein 1+H, Urine Glucose (UA) NEGATIVE, Urine Ketones TRACEH, Urine Blood 3+H, Urine Nitrite POSITIVEH, Urine Bilirubin NEGATIVE, Urine Urobilinogen 2.0H, Urine Leukocyte Esterase 1+H, Urine WBC (Auto) 40H, Urine RBC (Auto) TNTCH, Urine Hyaline Casts (Auto) 0, Urine Bacteria (Auto) 1+H, Urine Squamous Epithelial Cells 0, Urine Sperm (Auto) 02/13/20 20:58: POC Troponin I (Misc) 0.00 CBC/BMP Laboratory Tests 02/13/20 18:26 Microbiology Microbiology 02/13/20 Urine Culture, Received Pending Home Medications Scheduled Ascorbic Acid (Ascorbic Acid) 500 Mg Tablet, 500 MG PO DAILY Aspirin (Aspir 81) 81 Mg Tablet.dr, 81 MG PO DAILY Carvedilol (Carvedilol) 6.25 Mg Tab, 6.25 MG PO BID SECOND DOSE AFTER LUNCH Garlic (Garlic) 500 Mg Capsule, 500 MG PO DAILY Hydrochlorothiazide (Hydrochlorothiazide) 25 Mg Tablet, 25 MG PO DAILY Hydroxyzine HCl (Hydroxyzine HCl) 25 Mg Tab, 25 MG PO QHS Latanoprost/Pf (Latanoprost 0.005% Eye Drop) 7.5 Ml Drops, 1 DROP OU QHS Tamsulosin HCl (Flomax) 0.4 Mg Cap, 0.4 MG PO BID 2ND DOSE AFTER LUNCH Tretinoin Microspheres (Tretinoin Microsphere) 0.1 % Gel, 1 APPLIC TOP QHS APPLY TO FACE Allergies Coded Allergies: Cpxnwpo-Ugc-Dis Reductase Inhibitor (Unverified Allergy, Severe, 02/13/20) Penicillins (Verified Allergy, Intermediate, HIVES, 02/13/20) Sulfa (Sulfonamide Antibiotics) (Verified Allergy, Intermediate, HIVES, 02/13/20) KAITY BOOTH D.O. February 14, 2020 02:00 RACHAEL MAO MD February 14, 2020 04:01
[2020-02-14 02:32] VITALS: BP 125/76
[2020-02-14] MEDS: hydrOXYzine 25 MG TAB PO SCH ×2 (02:49→20:16)
[2020-02-14] MEDS: cefTRIAXone SOD 1 GM in D5W MINI-BAG PLUS 50 ML IV SCH (05:24)
[2020-02-14 06:00] VITALS: BP 111/65
[2020-02-14 06:33] LABS: INR 1.16; PROTHROMBIN TIME 14.5 SECONDS (11.8-14.0)
[2020-02-14 06:34] LABS: PARTIAL THROMBOPLASTIN TIME 31.7 SECONDS (25.0-38.4)
[2020-02-14 08:26] LABS: ALBUMIN 3.1 GM/DL (3.2-5.2); ALT/SGPT 865 U/L (12-78); BLOOD UREA NITROGEN 23 MG/DL (7-18); CALCIUM LEVEL 8.6 MG/DL (8.8-10.2); CARBON DIOXIDE LEVEL 26 MEQ/L (21-32); CHLORIDE LEVEL 104 MEQ/L (98-107); CREATININE FOR GFR 1.16 MG/DL (0.70-1.30); GLOMERULAR FILTRATION RATE > 60.0 (>35); GLUCOSE, FASTING 122 MG/DL (70-100); SODIUM LEVEL 140 MEQ/L (136-145); TOTAL PROTEIN 5.8 GM/DL (6.4-8.2)
[2020-02-14] MEDS ORDERED: CARVedilol 6.25 MG TAB PO SCH (09:00)
[2020-02-14] MEDS: ASPIRIN 81 MG ENTERIC TAB PO SCH (09:36)
[2020-02-14] MEDS: ASCORBIC ACID 500 MG TAB PO SCH (09:36)
[2020-02-14] MEDS: TAMSULOSIN 0.4 MG CAP PO SCH ×2 (09:36→13:34)
[2020-02-14] MEDS: CARVedilol 6.25 MG TAB PO SCH ×2 (09:38→13:35)
[2020-02-14] MEDS: hydroCHLOROthiazide 25 MG TAB PO SCH (09:39)
[2020-02-14] MEDS: ENOXAPARIN 40MG/0.4ML SYRINGE (J1650 PER 10MG) SC SCH (09:39)
[2020-02-14] MEDS: KCL 10MEQ/100ML SWI (KRUN) 10 MEQ in IV 1 EA IV SCH ×2 (10:52→12:00)
[2020-02-14] MEDS ORDERED: POTASSIUM CHLORIDE 10 MEQ SR TABLET PO ONE ×2 (11:00→14:00)
[2020-02-14] MEDS ORDERED: PROHANCE 279.3MG/ML 5ML VIAL As Ordered ONE (12:31)
[2020-02-14] MEDS ORDERED: PROHANCE 279.3MG/ML 15ML VIAL As Ordered ONE (12:32)
--- NOTE | 2020-02-14 13:03 | REP ---
CHEST, SINGLE VIEW: Single view of the chest is performed and compared to prior studies, most recently 09/27/2015. Chronic postsurgical and fibrotic changes seen on the left, stable. Metallic clips are seen in the left axillary region, and there is a staple line overlying the left lung. Heart is not significantly enlarged. There is mild calcification of the thoracic aorta. Mediastinal silhouette is unchanged. Multiple sternal wires are present. IMPRESSION: Stable chronic changes with no evidence of acute infiltrate. Electronically Signed by Beto Lawrence MD 02/14/2020 09:37 P
[2020-02-14 14:00] VITALS: BP 123/73
--- NOTE | 2020-02-14 16:19 | IPNPDOC ---
Date Seen The patient was seen on 02/14/20. Progress Note SUBJECTIVE: The patient was seen and examined at the bedside while eating lunch this morning. He denies any abdominal pain, no nausea/vomiting or diarrhea. He states that is able to tolerate food at this time. He denies any lightheadedness/dizziness. He denies any dysuria. He is eager to know the results of his abdominal MRI to be done today. OBJECTIVE PHYSICAL EXAMINATION: VITAL SIGNS: Please see below. GENERAL APPEARANCE: Laying in bed, appears stated age, no acute distress, calm, cooperative HEENT: EOMI, PERRLA, neck is supple with no thyromegaly or lymphadenopathy RESPIRATORY: Lungs are clear to auscultation bilaterally with no adventitious breath sounds appreciated CARDIOVASCULAR: no JVD, RRR,no murmurs/rubs/gallops, normal S1 and S2 ABDOMEN: +BS, soft, nontender to palpation in all four quadrants, no masses/organomegaly EXTREMITIES: no clubbing, cyanosis or edema noted NEUROLOGICAL: CN 2-12 intact, No obvious focal deficits PSYCHIATRIC: normal mood/affect Skin: No rashes or ulcers appreciated, warm and well-perfused LN: No significant cervical or inguinal lymphadenopathy LABORATORY DATA, IMAGING STUDIES, MICROBIOLOGY: Please see below. Echocardiogram: none DVT prophylaxis ordered?: Lovenox ASSESSMENT AND PLAN: This is an 84 YO M with history of prostate cancer who presented with 1 day epigastric pain and recent weight loss concerning for cholecystitis. PROBLEMS: 1. Epigastric pain: likely 2/2 symptomatic gallstones, less likely cholecystitis -RUQ ultrasound concerning for Irregularly-shaped echogenic masslike lesion within the lumen of the gallbladder which does not move with change inpatient position. -MRI abdomen ordered for further study of possible mass. Preliminary read demonstrates sludge in gallbladder nonconcerning for mass. -Will monitor 2. Tranaminitis: -Likely 2/2 gallstones vs Gilbert syndrome. Patient does not currently appear jaundice -Will trend -Hepatitis panel trending 3. UTI: -Continue Rocephin DISPOSITION: expect discharge within 24h VS, I&O, 24H, Fishbone Vital Signs/I&O Vital Signs Date Time Temp Pulse Resp B/P (MAP) Pulse Ox O2 Delivery O2 Flow Rate FiO2 02/14/20 13:35 66 123/70 02/14/20 06:00 99.4 18 94 Room Air I&O- Last 24 Hours up to 6 AM 02/14/20 06:00 Intake Total 110 ml Output Total 100 ml Balance 10 ml Laboratory Data 24H LABS Laboratory Tests 2 02/13/20 18:26: Immature Granulocyte % (Auto) 0.2, Neutrophils (%) (Auto) 91.8H, Lymphocytes (%) (Auto) 4.3L, Monocytes (%) (Auto) 3.6, Eosinophils (%) (Auto) 0.0, Basophils (%) (Auto) 0.1, Neutrophils # (Auto) 8.1, Lymphocytes # (Auto) 0.4L, Monocytes # (Auto) 0.3, Eosinophils # (Auto) 0.0, Basophils # (Auto) 0.0, Nucleated Red Blood Cells % (auto) 0.0, Anion Gap 7L, Glomerular Filtration Rate > 60.0, Calcium Level 9.2, Total Bilirubin 4.0H, Direct Bilirubin 2.5H, Gamma Glutamyl Transferase 781H, Aspartate Amino Transf (AST/SGOT) 954H, Alanine Aminotransferase (ALT/SGPT) 800H, Alkaline Phosphatase 206H, HO-[id number]-S-Type Natriuretic Peptide 246, Total Protein 6.5, Albumin 3.8, Albumin/Globulin Ratio 1.4, Lipase 88, Thyroid Stimulating Hormone (TSH) 1.370 02/13/20 18:32: POC Glucose (Misc Panel) 132H, POC Sodium (Misc Panel) 140, POC Potassium (Misc Panel) 3.4L, POC Chloride (Misc Panel) 99, POC Total CO2 (Misc Panel) 26.0, POC Blood Urea Nitrogen (Misc Panel 25, POC Ionized Calcium (Misc Panel) 4.7, POC Creatinine (Misc Panel) 1.2, POC Hematocrit (Misc Panel) 51.0 02/13/20 18:33: POC Troponin I (Misc) 0.00 02/13/20 18:44: Urine Color BASIL, Urine Appearance CLOUDYH, Urine pH 6.0, Urine Specific [place] 1.014, Urine Protein 1+H, Urine Glucose (UA) NEGATIVE, Urine Ketones TRACEH, Urine Blood 3+H, Urine Nitrite POSITIVEH, Urine Bilirubin NEGATIVE, Urine Urobilinogen 2.0H, Urine Leukocyte Esterase 1+H, Urine WBC (Auto) 40H, Urine RBC (Auto) TNTCH, Urine Hyaline Casts (Auto) 0, Urine Bacteria (Auto) 1+H, Urine Squamous Epithelial Cells 0, Urine Sperm (Auto) 02/13/20 20:58: POC Troponin I (Misc) 0.00 02/14/20 05:45: Anion Gap 10, Glomerular Filtration Rate > 60.0, Calcium Level 8.6L, Total Bilirubin 6.0H, Aspartate Amino Transf (AST/SGOT) 634H, Alanine Aminotransferase (ALT/SGPT) 865H, Alkaline Phosphatase 206H, Total Protein 5.8L, Albumin 3.1L, Albumin/Globulin Ratio 1.1 02/14/20 05:48: Prothrombin Time 14.5H, Prothromb Time International Ratio 1.16, Activated Partial Thromboplast Time 31.7 CBC/BMP Laboratory Tests 02/13/20 18:26 02/14/20 05:45 Microbiology Microbiology 02/13/20 Urine Culture, Received Pending GME ATTESTATION GME ATTESTATION My faculty preceptor for this patient encounter was physically present during the encounter and was fully available. All aspects of the patient interview, examination, medical decision making process, and medical care plan development were reviewed and approved by the faculty preceptor. The faculty preceptor is aware and concurs with the plan as stated in the body of this note and will attest to such by his/her cosignature. ALAYNA TRISTAN MD February 14, 2020 14:18
[2020-02-14] MEDS ORDERED: LATANOPROST 0.005% OPHTH SOLN 2.5 ML OU SCH (21:00)
[2020-02-14 22:00] VITALS: BP 135/85
[2020-02-15] MEDS: cefTRIAXone SOD 1 GM in D5W MINI-BAG PLUS 50 ML IV SCH (05:22)
[2020-02-15 06:00] VITALS: BP 135/79
[2020-02-15 06:27] LABS: HEMATOCRIT 44.7 % (42.0-52.0); HEMOGLOBIN 15.1 g/dl (13.5-17.5); MEAN CORPUSCULAR HEMOGLOBIN 29.7 pg (27.0-33.0); MEAN CORPUSCULAR HGB CONC 33.8 g/dl (32.0-36.5); PLATELET COUNT, AUTOMATED 198 10^3/uL (150-450); RED BLOOD COUNT 5.08 10^6/uL (4.30-6.10); WHITE BLOOD COUNT 7.6 10^3/uL (4.0-10.0)
[2020-02-15 06:54] LABS: ALBUMIN 2.9 GM/DL (3.2-5.2); ALT/SGPT 531 U/L (12-78); BILIRUBIN,TOTAL 6.1 MG/DL (0.2-1.0); BLOOD UREA NITROGEN 20 MG/DL (7-18); CALCIUM LEVEL 8.3 MG/DL (8.8-10.2); CARBON DIOXIDE LEVEL 27 MEQ/L (21-32); CHLORIDE LEVEL 104 MEQ/L (98-107); CREATININE FOR GFR 1.21 MG/DL (0.70-1.30); GLOMERULAR FILTRATION RATE > 60.0 (>35); GLUCOSE, FASTING 120 MG/DL (70-100); POTASSIUM SERUM 2.7 MEQ/L (3.5-5.1); SODIUM LEVEL 139 MEQ/L (136-145); TOTAL PROTEIN 6.3 GM/DL (6.4-8.2)
--- NOTE | 2020-02-15 07:40 | REP ---
MRI ABDOMEN WITH AND WITHOUT CONTRAST: TECHNIQUE: Multiple sequences obtained in the axial and coronal planes prior to and following the intravenous administration of 17 mL ProHance. Comparison made with prior CT of 02/13/2020 and ultrasound 02/13/2020. The gallbladder demonstrates no wall thickening or mass. Mild sludge and several subcentimeter stones are seen in the gallbladder lumen. There is no evidence of intrahepatic or extrahepatic biliary dilatation. Maximum diameter of the common bile duct is approximately 4 mm. There is no pancreatic duct dilatation. In the liver adjacent to the neck of the gallbladder, there is a 2.1 cm hyperintense nodule which demonstrates enhancement characteristics consistent with hemangioma. No other liver abnormality is seen. The spleen is normal in size with no intrinsic abnormality. The adrenal glands are normal. There are multiple tiny nonenhancing cysts throughout the pancreas most of which measure 2-3 mm in diameter. The largest cyst is in the head of the pancreas measuring 8 mm. Again, there is no suspicious enhancement of this cyst. The visualized upper poles of the kidneys demonstrate small cysts. IMPRESSION: No gallbladder mass. There is mild sludge and several subcentimeter stones in the gallbladder lumen. No gallbladder wall thickening. No free fluid or biliary dilatation. Benign hemangioma in the right lobe of the liver near the gallbladder. Multiple benign-appearing subcentimeter cysts throughout the pancreas, most of which measure 2-3 mm in diameter. The largest nonenhancing cyst is in the head of the pancreas measuring 8 mm maximally. Electronically Signed by Beto Lawrence MD 02/15/2020 09:57 A
[2020-02-15] MEDS: ASPIRIN 81 MG ENTERIC TAB PO SCH (09:12)
[2020-02-15] MEDS: TAMSULOSIN 0.4 MG CAP PO SCH ×2 (09:12→14:23)
[2020-02-15] MEDS: CARVedilol 6.25 MG TAB PO SCH ×2 (09:12→14:24)
[2020-02-15] MEDS: ASCORBIC ACID 500 MG TAB PO SCH (09:12)
[2020-02-15] MEDS: hydroCHLOROthiazide 25 MG TAB PO SCH (09:12)
[2020-02-15] MEDS: POTASSIUM CHLORIDE 10 MEQ SR TABLET PO SCH ×2 (09:12→14:23)
[2020-02-15] MEDS: KCL 10MEQ/100ML SWI (KRUN) 10 MEQ in IV 1 EA IV SCH ×4 (09:13→12:57)
[2020-02-15] MEDS: ENOXAPARIN 40MG/0.4ML SYRINGE (J1650 PER 10MG) SC SCH (09:13)
[2020-02-15] MEDS ORDERED: MAALOX 30 ML SUSP *UDC PO PRN (10:15)
[2020-02-15] MEDS ORDERED: MYLASSUD PO (13:50)
[2020-02-15 14:00] VITALS: BP 128/82
[2020-02-15 14:24] VITALS: BP 132/82
--- NOTE | 2020-02-15 14:30 | DS.PDOC ---
Discharge Summary General Date of Admission February 14, 2020 at 01:44 Date of Discharge 02/15/20 Attending Physician: PROMISE MOCTEZUMA MD Discharge Summary PROCEDURES PERFORMED DURING STAY: None. ADMITTING DIAGNOSES: 1. Abdominal pain, biliary colic, biliary sludge/gallstones. DISCHARGE DIAGNOSES: 1. Abdominal pain, biliary colic, biliary sludge/gallstones. COMPLICATIONS/CHIEF COMPLAINT: Epigastric Pain, Gallbladder Mass. HISTORY OF PRESENT ILLNESS: 84-year-old male with multiple medical comorbidities, was admitted for epigastric/right upper quadrant pain along with nausea/vomiting/dry heaving. He was initially thought to have a gallbladder mass seen on CAT scan, subsequent MRI showed biliary sludge with small gallstones. Patient's symptoms resolved with Maalox. At the time of presentation, he remained asymptomatic throughout the entire hospitalization, did develop recur rence of symptoms earlier today which again completely resolved with Maalox. Patient's symptoms are consistent with possible biliary colic. Given patient's extensive medical history and current minimal/benign symptoms which are easily controlled with Maalox he will be discharged and advised to follow-up with Dr. Honeycutt for possible surgical consultation in the outpatient setting. Patient is agreeable with this plan, discussed with son over the phone, clinically stable for discharge at this time. HOSPITAL COURSE: As above. DISCHARGE MEDICATIONS: Please see below. ALLERGIES: Please see below. PHYSICAL EXAMINATION: VITAL SIGNS: Please see below. GENERAL: No distress HEENT: Normocephalic, atraumatic, moist mucous membranes NECK: Supple CARDIOVASCULAR EXAMINATION: S1, S2, no murmurs RESPIRATORY EXAMINATION: Clear to auscultation, no wheezing ABDOMINAL EXAMINATION: Soft, nontender, nondistended, positive bowel sounds EXTREMITIES: Range of motion intact SKIN: No rash NEUROLOGICAL EXAMINATION: Alert and oriented 3, no focal deficits PSYCHIATRIC EXAMINATION: Calm and cooperative LABORATORY DATA: Please see below. IMAGING: MRI showing biliary sludge with small stones and benign pancreatic cysts along with a benign liver hemangioma PROGNOSIS: Fair ACTIVITY: As tolerated. DIET: Cardiac DISCHARGE PLAN: Follow-up with PCP within 1-2 weeks DISPOSITION: Home. DISCHARGE INSTRUCTIONS: 1. As above. DISCHARGE CONDITION: Stable. TIME SPENT ON DISCHARGE: Greater than 31 minutes. Vital Signs/I&Os Vital Signs Date Time Temp Pulse Resp B/P (MAP) Pulse Ox O2 Delivery O2 Flow Rate FiO2 02/15/20 14:24 67 132/82 02/15/20 06:00 98.1 18 95 Room Air I&O- Last 24 Hours up to 6 AM 02/15/20 06:00 Intake Total 900 ml Output Total 1250 ml Balance -350 ml Laboratory Data Labs 24H Laboratory Tests 2 02/15/20 06:03: Nucleated Red Blood Cells % (auto) 0.0, Anion Gap 8, Glomerular Filtration Rate > 60.0, Calcium Level 8.3L, Magnesium Level 2.0, Total Bilirubin 6.1H, Aspartate Amino Transf (AST/SGOT) 195H, Alanine Aminotransferase (ALT/SGPT) 531H, Alkaline Phosphatase 192H, Total Protein 6.3L, Albumin 2.9L, Albumin/Globulin Ratio 0.9 CBC/BMP Laboratory Tests 02/15/20 06:03 Microbiology Microbiology 02/13/20 Urine Culture - Final, Complete Klebsiella Pneumoniae Discharge Medications Scheduled Ascorbic Acid (Ascorbic Acid) 500 Mg Tablet, 500 MG PO DAILY, (Reported) Aspirin (Aspir 81) 81 Mg Tablet.dr, 81 MG PO DAILY, (Reported) Carvedilol (Carvedilol) 6.25 Mg Tab, 6.25 MG PO BID, (Reported) SECOND DOSE AFTER LUNCH Garlic (Garlic) 500 Mg Capsule, 500 MG PO DAILY, (Reported) Hydrochlorothiazide (Hydrochlorothiazide) 25 Mg Tablet, 25 MG PO DAILY, (Reported) Hydroxyzine HCl (Hydroxyzine HCl) 25 Mg Tab, 25 MG PO QHS, (Reported) Latanoprost/Pf (Latanoprost 0.005% Eye Drop) 7.5 Ml Drops, 1 DROP OU QHS, (Repo rted) Tamsulosin HCl (Flomax) 0.4 Mg Cap, 0.4 MG PO BID, (Reported) 2ND DOSE AFTER LUNCH Tretinoin Microspheres (Tretinoin Microsphere) 0.1 % Gel, 1 APPLIC TOP QHS, (Reported) APPLY TO FACE Scheduled PRN Aluminum/Magnesium/Simeth (Mag-Al Plus Suspension) 30 Ml Oral.susp, 30 ML PO Q8HP PRN for INDIGESTION Allergies Coded Allergies: Qyspcqs-Obp-Eve Reductase Inhibitor (Unverified Allergy, Severe, 02/13/20) Penicillins (Verified Allergy, Intermediate, HIVES, 02/13/20) Sulfa (Sulfonamide Antibiotics) (Verified Allergy, Intermediate, HIVES, ) PROMISE MOCTEZUMA MD February 15, 2020 14:30
--- NOTE | 2020-02-15 19:39 | ECGEPIP ---
[facility] - ED Test Date: 2020-02-13 Pat Name: MACIEJ ARDON Department: Room: [place] [address] Gender: Male Fish Header: emma : 1935 Requested By: MARTHA Shetty Order Number: [id number] Reading MD: Sallie Shultz Measurements Intervals [place] Rate: 82 P: 20 MD: 206 QRS: 32 QRSD: 97 T: 52 QT: 336 QTc: 393 Interpretive Statements SINUS RHYTHM WITH OCCASIONAL VENTRICULAR PREMATURE COMPLEXES PROBABLE INFERIOR MYOCARDIAL INFARCTION, PROBABLY OLD MODERATE T-WAVE ABNORMALITY, CONSIDER ANTERIOR ISCHEMIA INCREASED ECTOPY COMPARED 02/13/20 Electronically Signed on 02-15-2020 19:38:58 EDT by Sallie Shultz
[2020-02-16 10:26] LABS: HEPATITIS B SURFACE ANTIGEN NEGATIVE (NEGATIVE)
[2020-02-16 10:53] LABS: HEPATITIS B CORE ANTIBODY IGM NEGATIVE (NEGATIVE)
[2020-02-16 10:56] LABS: HEPATITIS A ANTIBODY IGM NEGATIVE (NEGATIVE)
== END 2020-02-15 15:19 | disposition home or self-care (01) | DRG 445 ==
LOC: M ED 17:55 → EDBD 17:55 → M ED INP 02-14 01:44 → ENRESERV 02-14 01:52 → M MSPAV 02-14 02:32
PROVIDERS: ADMIT Internal Medicine; ATTEND Internal Medicine
DX: K80.70 Calculus of gallbladder and bile duct without cholecystitis without obstruction (principal); N02.8 Recurrent and persistent hematuria with other morphologic changes; N39.0 Urinary tract infection, site not specified; I25.10 Atherosclerotic heart disease of native coronary artery without angina pectoris; I10 Essential (primary) hypertension; E78.5 Hyperlipidemia, unspecified; E80.4 Gilbert syndrome; H81.20 Vestibular neuronitis, unspecified ear; F41.9 Anxiety disorder, unspecified; B96.1 Klebsiella pneumoniae [K. pneumoniae] as the cause of diseases classified elsewhere; Z85.828 Personal history of other malignant neoplasm of skin; Z92.3 Personal history of irradiation; Z87.891 Personal history of nicotine dependence; Z95.1 Presence of aortocoronary bypass graft; Z85.46 Personal history of malignant neoplasm of prostate; Z79.82 Long term (current) use of aspirin; Z79.899 Other long term (current) drug therapy; Z88.0 Allergy status to penicillin; Z88.2 Allergy status to sulfonamides; Z88.8 Allergy status to other drugs, medicaments and biological substances

== ENCOUNTER → 2020-02-17 | Outpatient (REF) | payer MEDICARE, OTHER ==
[~2020-02-17] MED LIST changes: +ASCO500T PO; +ASPI81TA85 PO; +GARL500C2 PO; +HYDR25TAB PO; +LATA0.0015 OU; +MYLASSUD PO
[2020-02-17 14:45] LABS: BASO # 0.1 10^3/uL (0.0-0.2); EOS # 0.1 10^3/uL (0.0-0.5); EOS % 2.4 % (0.0-3.0); HEMATOCRIT 50.1 % (42.0-52.0); HEMOGLOBIN 16.2 g/dl (13.5-17.5); LYMPH # 1.2 10^3/uL (1.5-5.0); LYMPH % 20.5 % (24.0-44.0); MEAN CORPUSCULAR HEMOGLOBIN 29.6 pg (27.0-33.0); MEAN CORPUSCULAR HGB CONC 32.3 g/dl (32.0-36.5); MEAN CORPUSCULAR VOLUME 91.4 fl (80.0-96.0); MONO # 0.8 10^3/uL (0.0-0.8); MONO % 13.8 % (0.0-5.0); NEUTROPHILS # 3.6 10^3/uL (1.5-8.5); NEUTROPHILS % 61.1 % (36.0-66.0); PLATELET COUNT, AUTOMATED 250 10^3/uL (150-450); RED BLOOD COUNT 5.48 10^6/uL (4.30-6.10); WHITE BLOOD COUNT 5.9 10^3/uL (4.0-10.0)
[2020-02-17 14:48] LABS: ALBUMIN 3.4 GM/DL (3.2-5.2); ALT/SGPT 297 U/L (12-78); BILIRUBIN,TOTAL 2.5 MG/DL (0.2-1.0); BLOOD UREA NITROGEN 23 MG/DL (7-18); CALCIUM LEVEL 9.3 MG/DL (8.8-10.2); CARBON DIOXIDE LEVEL 31 MEQ/L (21-32); CHLORIDE LEVEL 106 MEQ/L (98-107); CREATININE FOR GFR 1.14 MG/DL (0.70-1.30); GLOMERULAR FILTRATION RATE > 60.0 (>35); GLUCOSE, FASTING 86 MG/DL (70-100); MAGNESIUM LEVEL 2.4 MG/DL (1.8-2.4); SODIUM LEVEL 144 MEQ/L (136-145); TOTAL PROTEIN 6.4 GM/DL (6.4-8.2)
== END ==
LOC: M SFHCADAM 08:59
PROVIDERS: ATTEND Family Medicine
DX: K81.9 Cholecystitis, unspecified (principal); E87.6 Hypokalemia

== ENCOUNTER → 2020-02-23 | Outpatient (REF) | payer MEDICARE, OTHER ==
[2020-02-23 13:02] LABS: HEMATOCRIT 49.8 % (42.0-52.0); HEMOGLOBIN 16.2 g/dl (13.5-17.5); MEAN CORPUSCULAR HEMOGLOBIN 30.1 pg (27.0-33.0); MEAN CORPUSCULAR HGB CONC 32.5 g/dl (32.0-36.5); MEAN CORPUSCULAR VOLUME 92.4 fl (80.0-96.0); PLATELET COUNT, AUTOMATED 342 10^3/uL (150-450); RED BLOOD COUNT 5.39 10^6/uL (4.30-6.10)
[2020-02-23 13:25] LABS: ALBUMIN 3.4 GM/DL (3.2-5.2); ALT/SGPT 254 U/L (12-78); BILIRUBIN,TOTAL 1.4 MG/DL (0.2-1.0); BLOOD UREA NITROGEN 22 MG/DL (7-18); CALCIUM LEVEL 9.1 MG/DL (8.8-10.2); CARBON DIOXIDE LEVEL 34 MEQ/L (21-32); CHLORIDE LEVEL 104 MEQ/L (98-107); CHOLESTEROL LEVEL 193 MG/DL (<200); CHOLESTEROL RISK RATIO 5.514 (<5); CREATININE FOR GFR 1.14 MG/DL (0.70-1.30); GLOMERULAR FILTRATION RATE > 60.0 (>35); GLUCOSE, FASTING 97 MG/DL (70-100); HDL CHOLESTEROL 35 MG/DL (>40); LDL CHOLESTEROL 127 MG/DL (<100); NON-HDL-C 158 MG/DL; POTASSIUM SERUM 4.1 MEQ/L (3.5-5.1); SODIUM LEVEL 141 MEQ/L (136-145); TOTAL PROTEIN 6.4 GM/DL (6.4-8.2); TRIGLYCERIDES LEVEL 156 MG/DL (<150)
== END ==
LOC: M SFHCADAM 09:39
PROVIDERS: ATTEND Family Medicine
DX: N02.9 Recurrent and persistent hematuria with unspecified morphologic changes (principal); I25.9 Chronic ischemic heart disease, unspecified; I11.9 Hypertensive heart disease without heart failure; R74.8 Abnormal levels of other serum enzymes

== ENCOUNTER → 2020-02-23 | Outpatient (REF) | payer MEDICARE, OTHER ==
[2020-02-23 13:26] LABS: ALBUMIN 3.5 GM/DL (3.2-5.2); BILIRUBIN,DIRECT 0.7 MG/DL (0.0-0.2); BILIRUBIN,TOTAL 1.4 MG/DL (0.2-1.0); TOTAL PROTEIN 6.5 GM/DL (6.4-8.2)
== END ==
LOC: M LABDRWAD 12:34
PROVIDERS: ATTEND Surgery
DX: R74.8 Abnormal levels of other serum enzymes (principal)

== ENCOUNTER 2020-03-01 04:42 | Emergency (ER) | payer MEDICARE, OTHER ==
[~2020-03-01] VITALS: Ht 167.6 cm; Wt 87.7 kg
[2020-03-01] MEDS ORDERED: LIDOCAINE 2% 5ML JELLY UROJET TOP ONE (05:00)
[2020-03-01 05:45] VITALS: BP 127/72
== END 2020-03-01 05:56 | disposition home or self-care (01) ==
LOC: M ED 04:42
DX: R33.9 Retention of urine, unspecified (principal); I10 Essential (primary) hypertension; Z79.899 Other long term (current) drug therapy; Z79.82 Long term (current) use of aspirin; Z88.0 Allergy status to penicillin; Z88.1 Allergy status to other antibiotic agents; Z88.2 Allergy status to sulfonamides; Z88.8 Allergy status to other drugs, medicaments and biological substances; Z87.891 Personal history of nicotine dependence

== ENCOUNTER 2020-03-03 00:42 | Emergency (ER) | payer MEDICARE ==
[~2020-03-03] VITALS: Ht 167.6 cm; Wt 88.0 kg
[~2020-03-03 00:42] MED LIST changes: -ASPI81TA85 PO; +ASPI81TA86 PO
[2020-03-03] MEDS ORDERED: LIDOCAINE 2% 5ML JELLY UROJET TOP ONE (01:00)
[2020-03-03 02:16] LABS: BASO # 0.1 10^3/uL (0.0-0.2); BASO % 0.7 % (0.0-1.0); EOS # 0.1 10^3/uL (0.0-0.5); EOS % 1.9 % (0.0-3.0); HEMATOCRIT 43.2 % (42.0-52.0); HEMOGLOBIN 14.7 g/dl (13.5-17.5); LYMPH # 1.5 10^3/uL (1.5-5.0); LYMPH % 22.5 % (24.0-44.0); MEAN CORPUSCULAR HEMOGLOBIN 30.4 pg (27.0-33.0); MEAN CORPUSCULAR VOLUME 89.4 fl (80.0-96.0); MONO # 0.9 10^3/uL (0.0-0.8); MONO % 12.7 % (0.0-5.0); NEUTROPHILS # 4.1 10^3/uL (1.5-8.5); NEUTROPHILS % 61.9 % (36.0-66.0); PLATELET COUNT, AUTOMATED 274 10^3/uL (150-450); RED BLOOD COUNT 4.83 10^6/uL (4.30-6.10); WHITE BLOOD COUNT 6.7 10^3/uL (4.0-10.0)
[2020-03-03 02:42] LABS: ALBUMIN 3.3 GM/DL (3.2-5.2); ALT/SGPT 72 U/L (12-78); BILIRUBIN,DIRECT 0.5 MG/DL (0.0-0.2); BILIRUBIN,TOTAL 1.2 MG/DL (0.2-1.0); BLOOD UREA NITROGEN 26 MG/DL (7-18); CALCIUM LEVEL 8.7 MG/DL (8.8-10.2); CARBON DIOXIDE LEVEL 27 MEQ/L (21-32); CHLORIDE LEVEL 107 MEQ/L (98-107); CREATININE FOR GFR 1.02 MG/DL (0.70-1.30); GLOMERULAR FILTRATION RATE > 60.0 (>35); GLUCOSE, FASTING 102 MG/DL (70-100); LIPASE 85 U/L (73-393); POTASSIUM SERUM 3.1 MEQ/L (3.5-5.1); SODIUM LEVEL 141 MEQ/L (136-145); TOTAL PROTEIN 5.9 GM/DL (6.4-8.2)
--- NOTE | 2020-03-03 03:12 | REPVR ---
PROCEDURE INFORMATION: Exam: US Abdomen Limited, Right Upper Quadrant Exam date and time: 03/03/2020 2:32 AM Age: 84 years old Clinical indication: Abdominal pain; Colic; Additional info: Ruq pain on exam, HX of sludge TECHNIQUE: Imaging protocol: Real-time ultrasound of the abdomen with image documentation. Examination was focused on the right upper quadrant. COMPARISON: GALLBLADDER US 02/13/2020 8:14 PM FINDINGS: Liver: Normal. No masses. Gallbladder: Polypoid echogenic structure in the gallbladder lumen may be adherent sludge,, slightly increased since the prior exam. No gallbladder wall thickening or pericholecystic fluid. Common bile duct: Normal. No stones. No dilation. Pancreas: Visualized pancreas is unremarkable. Right kidney: Right kidney is mildly atrophic with cortical thinning and heterogeneous echogenic cortex. No hydronephrosis. IMPRESSION: 1. Moderate amount of sludge in the gallbladder lumen. No signs of acute cholecystitis. 2. Atrophic right kidney. Electronically signed by: Xavi Roman On 03/03/2020 03:11:31 AM
[2020-03-03] MEDS ORDERED: POTASSIUM CHLORIDE 10 MEQ SR TABLET PO ONE (03:45)
[2020-03-03 03:49] VITALS: BP 160/93
== END 2020-03-03 03:59 | disposition home or self-care (01) ==
LOC: M ED 00:42
DX: T83.098A Other mechanical complication of other urinary catheter, initial encounter (principal); X58.XXXA Exposure to other specified factors, initial encounter; Y92.89 Other specified places as the place of occurrence of the external cause; I25.2 Old myocardial infarction; Z85.46 Personal history of malignant neoplasm of prostate; Z79.899 Other long term (current) drug therapy; Z79.82 Long term (current) use of aspirin; Z88.0 Allergy status to penicillin; Z88.1 Allergy status to other antibiotic agents; Z88.2 Allergy status to sulfonamides; Z88.8 Allergy status to other drugs, medicaments and biological substances

== ENCOUNTER 2020-04-03 03:13 | Emergency (ER) | payer MEDICARE, OTHER ==
[~2020-04-03] VITALS: Ht 167.6 cm; Wt 87.7 kg
[2020-04-03] MEDS ORDERED: PHEN-593 (03:32)
[2020-04-03] MEDS ORDERED: LIDOCAINE 2% 5ML JELLY UROJET TOP ONE (05:45)
[2020-04-03 06:19] VITALS: BP 148/88
[2020-04-03 06:39] LABS: BASO # 0.1 10^3/uL (0.0-0.2); BASO % 0.8 % (0.0-1.0); EOS # 0.1 10^3/uL (0.0-0.5); EOS % 2.2 % (0.0-3.0); HEMATOCRIT 43.7 % (42.0-52.0); HEMOGLOBIN 14.9 g/dl (13.5-17.5); LYMPH # 1.5 10^3/uL (1.5-5.0); LYMPH % 22.8 % (24.0-44.0); MEAN CORPUSCULAR HEMOGLOBIN 29.9 pg (27.0-33.0); MEAN CORPUSCULAR HGB CONC 34.1 g/dl (32.0-36.5); MEAN CORPUSCULAR VOLUME 87.6 fl (80.0-96.0); MONO # 0.7 10^3/uL (0.0-0.8); MONO % 10.6 % (0.0-5.0); NEUTROPHILS # 4.1 10^3/uL (1.5-8.5); PLATELET COUNT, AUTOMATED 262 10^3/uL (150-450); RED BLOOD COUNT 4.99 10^6/uL (4.30-6.10); WHITE BLOOD COUNT 6.5 10^3/uL (4.0-10.0)
[2020-04-03 06:44] LABS: APPEARANCE, URINE CLOUDY (CLEAR); BACTERIA, URINE AUTO NEGATIVE (NEGATIVE); BILIRUBIN, URINE AUTO NEGATIVE (NEGATIVE); BLOOD, URINE BLOOD 3+ (NEGATIVE); COLOR, URINE RED (YELLOW); GLUCOSE, URINE (UA) AUTO NEGATIVE (NEGATIVE); KETONE, URINE AUTO TRACE mg/dL (NEGATIVE); LEUKOCYTE ESTERASE, URINE AUTO NEGATIVE (NEGATIVE); NITRITE, URINE AUTO NEGATIVE (NEGATIVE); PROTEIN, URINE AUTO 2+ mg/dL (NEGATIVE); RBC, URINE AUTO TNTC /HPF (0-3); SPECIFIC GRAVITY URINE AUTO 1.009 (1.002-1.035); SQUAMOUS EPITHELIAL CELL UR AU 0 /HPF (0-6); UROBILINOGEN, URINE AUTO 0.2 mg/dL (0.0-2.0); WBC, URINE AUTO 41 /HPF (0-3)
[2020-04-03 06:50] LABS: PARTIAL THROMBOPLASTIN TIME 31.8 SECONDS (25.0-38.4)
[2020-04-03 06:58] LABS: INR 1.14; PROTHROMBIN TIME 14.3 SECONDS (11.8-14.0)
[2020-04-03 07:03] LABS: BLOOD UREA NITROGEN 20 MG/DL (7-18); CALCIUM LEVEL 8.5 MG/DL (8.8-10.2); CARBON DIOXIDE LEVEL 28 MEQ/L (21-32); CHLORIDE LEVEL 107 MEQ/L (98-107); GLOMERULAR FILTRATION RATE > 60.0 (>35); GLUCOSE, FASTING 105 MG/DL (70-100); POTASSIUM SERUM 3.1 MEQ/L (3.5-5.1); SODIUM LEVEL 141 MEQ/L (136-145)
== END 2020-04-03 07:06 | disposition home or self-care (01) ==
LOC: M ED 03:13
DX: R31.9 Hematuria, unspecified (principal); C61 Malignant neoplasm of prostate; I25.10 Atherosclerotic heart disease of native coronary artery without angina pectoris; I10 Essential (primary) hypertension; F10.11 Alcohol abuse, in remission; Z79.82 Long term (current) use of aspirin; Z79.899 Other long term (current) drug therapy; Z88.0 Allergy status to penicillin; Z88.2 Allergy status to sulfonamides; Z88.8 Allergy status to other drugs, medicaments and biological substances; Z98.890 Other specified postprocedural states; Z92.3 Personal history of irradiation; Z85.820 Personal history of malignant melanoma of skin

== ENCOUNTER → 2020-05-05 | Outpatient (REF) | payer MEDICARE, OTHER ==
[~2020-05-05] MED LIST changes: +PHEN-593
== END ==
LOC: M LAB REF 16:16
PROVIDERS: ATTEND Dermatology
DX: D49.2 Neoplasm of unspecified behavior of bone, soft tissue, and skin (principal)

== ENCOUNTER → 2020-05-19 | Outpatient (REF) | payer MEDICARE, OTHER ==
[2020-05-19 14:26] LABS: HEMATOCRIT 50.3 % (42.0-52.0); HEMOGLOBIN 16.3 g/dl (13.5-17.5); MEAN CORPUSCULAR HEMOGLOBIN 29.5 pg (27.0-33.0); MEAN CORPUSCULAR HGB CONC 32.4 g/dl (32.0-36.5); MEAN CORPUSCULAR VOLUME 91.1 fl (80.0-96.0); PLATELET COUNT, AUTOMATED 242 10^3/uL (150-450); RED BLOOD COUNT 5.52 10^6/uL (4.30-6.10); WHITE BLOOD COUNT 6.6 10^3/uL (4.0-10.0)
[2020-05-19 15:11] LABS: ALBUMIN 3.7 GM/DL (3.2-5.2); ALT/SGPT 32 U/L (12-78); BILIRUBIN,TOTAL 1.2 MG/DL (0.2-1.0); BLOOD UREA NITROGEN 21 MG/DL (7-18); CALCIUM LEVEL 8.9 MG/DL (8.8-10.2); CARBON DIOXIDE LEVEL 32 MEQ/L (21-32); CHLORIDE LEVEL 103 MEQ/L (98-107); CREATININE FOR GFR 1.18 MG/DL (0.70-1.30); GLOMERULAR FILTRATION RATE > 60.0 (>35); GLUCOSE, FASTING 86 MG/DL (70-100); POTASSIUM SERUM 3.8 MEQ/L (3.5-5.1); SODIUM LEVEL 141 MEQ/L (136-145); TOTAL PROTEIN 6.5 GM/DL (6.4-8.2)
== END ==
LOC: M LABDRWAD 12:43
PROVIDERS: ATTEND Family Medicine
DX: N02.9 Recurrent and persistent hematuria with unspecified morphologic changes (principal); I25.9 Chronic ischemic heart disease, unspecified; I11.9 Hypertensive heart disease without heart failure

== ENCOUNTER → 2020-06-08 | Outpatient (REF) | payer MEDICARE, OTHER | LOC: M LAB REF 19:01 | PROVIDERS: ATTEND Dermatology | DX: L72.0 Epidermal cyst (principal) ==

== ENCOUNTER → 2020-06-17 | Outpatient (REF) | payer MEDICARE, OTHER ==
[2020-06-17 13:30] LABS: BASO % 0.5 % (0.0-1.0); EOS # 0.1 10^3/uL (0.0-0.5); EOS % 2.4 % (0.0-3.0); HEMOGLOBIN 14.8 g/dl (13.5-17.5); LYMPH # 1.4 10^3/uL (1.5-5.0); LYMPH % 23.5 % (24.0-44.0); MEAN CORPUSCULAR HEMOGLOBIN 29.1 pg (27.0-33.0); MEAN CORPUSCULAR HGB CONC 32.2 g/dl (32.0-36.5); MEAN CORPUSCULAR VOLUME 90.6 fl (80.0-96.0); MONO # 0.7 10^3/uL (0.0-0.8); MONO % 12.4 % (0.0-5.0); NEUTROPHILS # 3.6 10^3/uL (1.5-8.5); NEUTROPHILS % 60.9 % (36.0-66.0); PLATELET COUNT, AUTOMATED 247 10^3/uL (150-450); RED BLOOD COUNT 5.08 10^6/uL (4.30-6.10); WHITE BLOOD COUNT 5.9 10^3/uL (4.0-10.0)
[2020-06-17 13:36] LABS: APPEARANCE, URINE CLOUDY (CLEAR); BACTERIA, URINE AUTO 1+ (NEGATIVE); BILIRUBIN, URINE AUTO NEGATIVE (NEGATIVE); BLOOD, URINE BLOOD 1+ (NEGATIVE); COLOR, URINE YELLOW (YELLOW); GLUCOSE, URINE (UA) AUTO NEGATIVE (NEGATIVE); KETONE, URINE AUTO NEGATIVE (NEGATIVE); LEUKOCYTE ESTERASE, URINE AUTO 3+ (NEGATIVE); MUCUS, URINE SMALL (NEGATIVE); NITRITE, URINE AUTO POSITIVE (NEGATIVE); PROTEIN, URINE AUTO NEGATIVE (NEGATIVE); RBC, URINE AUTO 8 /HPF (0-3); SPECIFIC GRAVITY URINE AUTO 1.015 (1.002-1.035); SQUAMOUS EPITHELIAL CELL UR AU 0 /HPF (0-6); UROBILINOGEN, URINE AUTO 0.2 mg/dL (0.0-2.0); WBC, URINE AUTO 162 /HPF (0-3)
[2020-06-17 13:41] LABS: INR 1.02; PROTHROMBIN TIME 13.6 SECONDS (12.5-14.3)
[2020-06-17 14:02] LABS: CALCIUM LEVEL 9.2 MG/DL (8.8-10.2); CREATININE FOR GFR 1.23 MG/DL (0.70-1.30); GLOMERULAR FILTRATION RATE 59.5 (>35); POTASSIUM SERUM 4.2 MEQ/L (3.5-5.1)
== END ==
LOC: M PLALAB 12:31
PROVIDERS: ATTEND Urology
DX: C67.4 Malignant neoplasm of posterior wall of bladder (principal); N39.0 Urinary tract infection, site not specified; Z23 Encounter for immunization
CPT/HCPCS: 36415; 80048; 81001; 85025; 85610; 87088; 87186; 90682; G0008; G0463

== ENCOUNTER → 2020-08-19 | Outpatient (CLI) | payer MEDICARE, OTHER ==
[~2020-08-19] MED LIST changes: -PHEN-593; +PHEN1TAB73
[2020-08-19 17:29] LABS: APPEARANCE, URINE HAZY (CLEAR); BACTERIA, URINE AUTO 2+ (NEGATIVE); BILIRUBIN, URINE AUTO NEGATIVE (NEGATIVE); BLOOD, URINE BLOOD NEGATIVE (NEGATIVE); COLOR, URINE YELLOW (YELLOW); GLUCOSE, URINE (UA) AUTO NEGATIVE (NEGATIVE); KETONE, URINE AUTO NEGATIVE (NEGATIVE); LEUKOCYTE ESTERASE, URINE AUTO 1+ (NEGATIVE); NITRITE, URINE AUTO NEGATIVE (NEGATIVE); PROTEIN, URINE AUTO NEGATIVE (NEGATIVE); RBC, URINE AUTO 17 /HPF (0-3); SPECIFIC GRAVITY URINE AUTO 1.017 (1.002-1.035); SQUAMOUS EPITHELIAL CELL UR AU 0 /HPF (0-6); UROBILINOGEN, URINE AUTO 0.2 mg/dL (0.0-2.0); WBC, URINE AUTO 39 /HPF (0-3)
== END ==
LOC: M WUC 12:36
PROVIDERS: ATTEND Urology
DX: R39.15 Urgency of urination (principal); R35.0 Frequency of micturition

== ENCOUNTER → 2020-09-01 | Outpatient (REF) | payer MEDICARE, OTHER ==
[~2020-09-01] MED LIST changes: +HYDR-3490 PO; -HYDR25TAB PO
== END ==
LOC: M LAB REF 14:00
PROVIDERS: ATTEND Dermatology
DX: D36.11 Benign neoplasm of peripheral nerves and autonomic nervous system of face, head, and neck (principal); L57.0 Actinic keratosis

== ENCOUNTER → 2020-09-02 | Outpatient (CLI) | payer MEDICARE, OTHER ==
[~2020-09-02] MED LIST changes: -HYDR-3490 PO; +HYDR25TAB PO
[2020-09-02 18:16] LABS: APPEARANCE, URINE HAZY (CLEAR); BACTERIA, URINE AUTO NEGATIVE (NEGATIVE); BILIRUBIN, URINE AUTO NEGATIVE (NEGATIVE); BLOOD, URINE BLOOD NEGATIVE (NEGATIVE); COLOR, URINE YELLOW (YELLOW); GLUCOSE, URINE (UA) AUTO NEGATIVE (NEGATIVE); KETONE, URINE AUTO NEGATIVE (NEGATIVE); LEUKOCYTE ESTERASE, URINE AUTO 1+ (NEGATIVE); MUCUS, URINE SMALL (NEGATIVE); NITRITE, URINE AUTO NEGATIVE (NEGATIVE); PROTEIN, URINE AUTO NEGATIVE (NEGATIVE); RBC, URINE AUTO 1 /HPF (0-3); SPECIFIC GRAVITY URINE AUTO 1.016 (1.002-1.035); SQUAMOUS EPITHELIAL CELL UR AU 0 /HPF (0-6); UROBILINOGEN, URINE AUTO 0.2 mg/dL (0.0-2.0); WBC, URINE AUTO 34 /HPF (0-3)
== END ==
LOC: M WUC 11:37
PROVIDERS: ATTEND Urology
DX: R39.15 Urgency of urination (principal); R35.0 Frequency of micturition

== ENCOUNTER → 2020-10-11 | Outpatient (CLI) | payer MEDICARE, OTHER ==
[~2020-10-11] MED LIST changes: +HYDR-3490 PO; -HYDR25TAB PO
[2020-10-11 13:13] LABS: APPEARANCE, URINE CLEAR (CLEAR); BACTERIA, URINE AUTO NEGATIVE (NEGATIVE); BILIRUBIN, URINE AUTO NEGATIVE (NEGATIVE); BLOOD, URINE BLOOD 2+ (NEGATIVE); COLOR, URINE YELLOW (YELLOW); GLUCOSE, URINE (UA) AUTO NEGATIVE (NEGATIVE); KETONE, URINE AUTO NEGATIVE (NEGATIVE); LEUKOCYTE ESTERASE, URINE AUTO NEGATIVE (NEGATIVE); NITRITE, URINE AUTO NEGATIVE (NEGATIVE); PROTEIN, URINE AUTO NEGATIVE (NEGATIVE); RBC, URINE AUTO 113 /HPF (0-3); SPECIFIC GRAVITY URINE AUTO 1.015 (1.002-1.035); SQUAMOUS EPITHELIAL CELL UR AU 0 /HPF (0-6); UROBILINOGEN, URINE AUTO 0.2 mg/dL (0.0-2.0); WBC, URINE AUTO 2 /HPF (0-3)
[2020-10-11 13:21] LABS: BASO # 0.1 10^3/uL (0.0-0.2); BASO % 0.9 % (0.0-1.0); EOS # 0.1 10^3/uL (0.0-0.5); EOS % 2.1 % (0.0-3.0); HEMOGLOBIN 16.8 g/dl (13.5-17.5); LYMPH # 1.6 10^3/uL (1.5-5.0); LYMPH % 27.2 % (24.0-44.0); MEAN CORPUSCULAR HEMOGLOBIN 29.7 pg (27.0-33.0); MEAN CORPUSCULAR HGB CONC 32.9 g/dl (32.0-36.5); MEAN CORPUSCULAR VOLUME 90.3 fl (80.0-96.0); MONO # 0.7 10^3/uL (0.0-0.8); MONO % 11.5 % (0.0-5.0); NEUTROPHILS # 3.4 10^3/uL (1.5-8.5); PLATELET COUNT, AUTOMATED 228 10^3/uL (150-450); RED BLOOD COUNT 5.65 10^6/uL (4.30-6.10); WHITE BLOOD COUNT 5.8 10^3/uL (4.0-10.0)
[2020-10-11 13:32] LABS: PROTHROMBIN TIME 13.4 SECONDS (12.5-14.3)
[2020-10-11 13:47] LABS: BLOOD UREA NITROGEN 27 MG/DL (7-18); CARBON DIOXIDE LEVEL 32 MEQ/L (21-32); CHLORIDE LEVEL 102 MEQ/L (98-107); CREATININE FOR GFR 1.13 MG/DL (0.70-1.30); GLOMERULAR FILTRATION RATE > 60.0 (>35); GLUCOSE, FASTING 90 MG/DL (70-100); POTASSIUM SERUM 3.9 MEQ/L (3.5-5.1); SODIUM LEVEL 140 MEQ/L (136-145)
== END ==
LOC: M WUC 10:38
PROVIDERS: ATTEND Urology
DX: R30.0 Dysuria (principal); C67.9 Malignant neoplasm of bladder, unspecified

== ENCOUNTER → 2020-10-15 | Outpatient (CLI) | payer MEDICARE, OTHER | LOC: M LABSMTC 09:40 | PROVIDERS: ATTEND Urology | DX: Z20.822 Contact with and (suspected) exposure to COVID-19 (principal); C67.9 Malignant neoplasm of bladder, unspecified ==

== ENCOUNTER → 2020-12-14 | Outpatient (CLI) | payer MEDICARE, OTHER ==
--- NOTE | 2020-12-14 18:41 | REP ---
INDICATION: RIGHT FOOT PAIN. COMPARISON: None. TECHNIQUE: Four views of the right ankle. FINDINGS: Four views of the right ankle demonstrate soft tissue vascular calcification. Mild anterior tibial spurring is seen at the ankle. Ankle mortise is intact. No fracture is seen. No erosive changes seen. IMPRESSION: Minimal distal tibial spurring. Vascular calcification. No acute bony abnormality. <Electronically signed by Alexandro Azevedo > 12/14/20 [id number]
== END ==
LOC: M ADAMS 10:41
PROVIDERS: ATTEND Family Medicine
DX: M61.461 Other calcification of muscle, right lower leg (principal); M79.671 Pain in right foot

== ENCOUNTER → 2021-02-04 | Outpatient (REF) | payer MEDICARE, OTHER ==
[2021-02-04 13:18] LABS: HEMATOCRIT 51.8 % (42.0-52.0); HEMOGLOBIN 16.9 g/dl (13.5-17.5); MEAN CORPUSCULAR HEMOGLOBIN 30.2 pg (27.0-33.0); MEAN CORPUSCULAR HGB CONC 32.6 g/dl (32.0-36.5); MEAN CORPUSCULAR VOLUME 92.7 fl (80.0-96.0); PLATELET COUNT, AUTOMATED 240 10^3/uL (150-450); RED BLOOD COUNT 5.59 10^6/uL (4.30-6.10); WHITE BLOOD COUNT 5.9 10^3/uL (4.0-10.0)
[2021-02-04 14:06] LABS: ALBUMIN 3.7 GM/DL (3.2-5.2); ALT/SGPT 28 U/L (12-78); BILIRUBIN,TOTAL 1.3 MG/DL (0.2-1.0); BLOOD UREA NITROGEN 23 MG/DL (7-18); CALCIUM LEVEL 8.8 MG/DL (8.8-10.2); CARBON DIOXIDE LEVEL 30 MEQ/L (21-32); CHLORIDE LEVEL 105 MEQ/L (98-107); CHOLESTEROL LEVEL 185 MG/DL (<200); CHOLESTEROL RISK RATIO 3.627 (<5); CREATININE FOR GFR 1.05 MG/DL (0.70-1.30); GLOMERULAR FILTRATION RATE > 60.0 (>35); GLUCOSE, FASTING 88 MG/DL (70-100); HDL CHOLESTEROL 51 MG/DL (>40); LDL CHOLESTEROL 113 MG/DL (<100); NON-HDL-C 134 MG/DL; SODIUM LEVEL 141 MEQ/L (136-145); TOTAL PROTEIN 6.8 GM/DL (6.4-8.2); TRIGLYCERIDES LEVEL 106 MG/DL (<150)
== END ==
LOC: M SFHCADAM 09:39
PROVIDERS: ATTEND Family Medicine
DX: C67.9 Malignant neoplasm of bladder, unspecified (principal); N02.9 Recurrent and persistent hematuria with unspecified morphologic changes; I11.9 Hypertensive heart disease without heart failure; E78.5 Hyperlipidemia, unspecified

== ENCOUNTER → 2021-02-04 | Outpatient (REF) | payer MEDICARE, OTHER | LOC: M LAB REF 12:39 | PROVIDERS: ATTEND Urology | DX: C67.4 Malignant neoplasm of posterior wall of bladder (principal) ==

== ENCOUNTER → 2021-04-05 | Outpatient (CLI) | payer MEDICARE, OTHER ==
[~2021-04-05] MED LIST changes: +GASTROGRAFIN SOLUTION 30ML (Q9963) As Ordered ONE
--- NOTE | 2021-04-05 18:14 | REP ---
INDICATION: BILATERAL INGUINAL HERNIA, W/O OBST OR GANGRENE, R COMPARISON: 02/13/2020. TECHNIQUE: CT Scan of the abdomen and pelvis was performed without intravenous contrast. Oral contrast was administered. Sagittal and coronal reconstruction images performed. FINDINGS: Lung bases: There are mild bibasilar fibrotic changes. There are a few tiny calcified granulomas in the right lung base. There are surgical sutures in the left lung base. Liver: There are few tiny calcified granulomas. Gallbladder: There are gallstones in the gallbladder. Spleen: There are calcified granulomas. Adrenals: Normal. Pancreas: Grossly unremarkable.. Kidneys: No hydronephrosis or nephrolithiasis. Ureters demonstrate no dilatation or calculus. There is bilateral cortical thinning. Small and large bowel: There is left colonic and sigmoid diverticulosis without acute diverticulitis.. Free fluid: None. Abdominal aorta: No aneurysm. Adenopathy: None. Appendix: Not inflamed. Osseous structures: There are degenerative changes of the spine without compression deformity. Pelvis: No mass. No bladder calculus seen. There is a moderate left inguinal hernia containing fat, with the fat extending into the region of the superior left scrotum. There is a moderate right inguinal hernia containing fat which extends to the base of the penis, not extending into the scrotum. Multiple metallic densities are seen in the prostate. IMPRESSION: Moderate bilateral inguinal hernias containing fat. Left inguinal hernia extends more inferiorly than the right, toward the left hemiscrotum. The inferior extent is not imaged. Gallstones in the gallbladder. Diverticulosis without acute diverticulitis. <Electronically signed by Beto Lawrence > 04/05/21 [id number]
== END ==
LOC: M RAD 15:19
PROVIDERS: ATTEND Surgery
DX: K40.21 Bilateral inguinal hernia, without obstruction or gangrene, recurrent (principal); K80.20 Calculus of gallbladder without cholecystitis without obstruction; K57.30 Diverticulosis of large intestine without perforation or abscess without bleeding
CPT/HCPCS: 74176; Q9963

== ENCOUNTER → 2021-05-26 | Outpatient (REF) | payer MEDICARE ==
[~2021-05-26] MED LIST changes: -GASTROGRAFIN SOLUTION 30ML (Q9963) As Ordered ONE
[2021-05-26 16:53] LABS: APPEARANCE, URINE HAZY (CLEAR); BACTERIA, URINE AUTO NEGATIVE (NEGATIVE); BILIRUBIN, URINE AUTO NEGATIVE (NEGATIVE); BLOOD, URINE BLOOD NEGATIVE (NEGATIVE); COLOR, URINE YELLOW (YELLOW); GLUCOSE, URINE (UA) AUTO NEGATIVE (NEGATIVE); KETONE, URINE AUTO NEGATIVE (NEGATIVE); LEUKOCYTE ESTERASE, URINE AUTO NEGATIVE (NEGATIVE); NITRITE, URINE AUTO NEGATIVE (NEGATIVE); PROTEIN, URINE AUTO NEGATIVE (NEGATIVE); RBC, URINE AUTO 11 /HPF (0-3); SPECIFIC GRAVITY URINE AUTO 1.014 (1.002-1.035); SQUAMOUS EPITHELIAL CELL UR AU 0 /HPF (0-6); UROBILINOGEN, URINE AUTO 0.2 mg/dL (0.0-2.0); WBC, URINE AUTO 1 /HPF (0-3)
== END ==
LOC: M SFHCPLAZ 15:07 → M SFHCADAM 15:09
PROVIDERS: ATTEND Family Medicine
DX: R30.0 Dysuria (principal)

== ENCOUNTER → 2021-07-19 | Outpatient (REF) | payer MEDICARE | LOC: M LAB REF 12:32 | PROVIDERS: ATTEND Urology | DX: C67.4 Malignant neoplasm of posterior wall of bladder (principal) ==

== ENCOUNTER → 2021-07-19 | Outpatient (REF) | payer MEDICARE ==
[2021-07-19 14:03] LABS: HEMATOCRIT 51.7 % (42.0-52.0); HEMOGLOBIN 16.9 g/dl (13.5-17.5); MEAN CORPUSCULAR HEMOGLOBIN 29.8 pg (27.0-33.0); MEAN CORPUSCULAR HGB CONC 32.7 g/dl (32.0-36.5); MEAN CORPUSCULAR VOLUME 91.2 fl (80.0-96.0); PLATELET COUNT, AUTOMATED 254 10^3/uL (150-450); RED BLOOD COUNT 5.67 10^6/uL (4.30-6.10); WHITE BLOOD COUNT 5.9 10^3/uL (4.0-10.0)
[2021-07-19 14:59] LABS: ALBUMIN 3.6 GM/DL (3.2-5.2); BILIRUBIN,TOTAL 1.1 MG/DL (0.2-1.0); CALCIUM LEVEL 9.1 MG/DL (8.8-10.2); CHOLESTEROL RISK RATIO 4.707 (<5); CREATININE FOR GFR 1.33 MG/DL (0.70-1.30); GLOMERULAR FILTRATION RATE 54.3 (>35); POTASSIUM SERUM 4.2 MEQ/L (3.5-5.1); TOTAL PROTEIN 6.8 GM/DL (6.4-8.2)
== END ==
LOC: M SFHCADAM 08:18
PROVIDERS: ATTEND Family Medicine
DX: N02.9 Recurrent and persistent hematuria with unspecified morphologic changes (principal); I11.9 Hypertensive heart disease without heart failure; E78.5 Hyperlipidemia, unspecified

== ENCOUNTER → 2022-01-27 | Outpatient (REF) | payer MEDICARE | LOC: M SFHCADAM 09:43 | PROVIDERS: ATTEND Family Medicine | DX: Z53.9 Procedure and treatment not carried out, unspecified reason (principal) ==

== ENCOUNTER → 2022-01-27 | Outpatient (CLI) | payer MEDICARE ==
[2022-01-27 13:59] LABS: HEMATOCRIT 48.9 % (42.0-52.0); HEMOGLOBIN 16.1 g/dl (13.5-17.5); MEAN CORPUSCULAR HEMOGLOBIN 29.9 pg (27.0-33.0); MEAN CORPUSCULAR HGB CONC 32.9 g/dl (32.0-36.5); MEAN CORPUSCULAR VOLUME 90.9 fl (80.0-96.0); PLATELET COUNT, AUTOMATED 242 10^3/uL (150-450); RED BLOOD COUNT 5.38 10^6/uL (4.30-6.10)
[2022-01-27 14:23] LABS: ALBUMIN 3.7 GM/DL (3.2-5.2); BILIRUBIN,TOTAL 1.2 MG/DL (0.2-1.0); CALCIUM LEVEL 9.1 MG/DL (8.8-10.2); CHOLESTEROL RISK RATIO 4.069 (<5); CREATININE FOR GFR 1.31 MG/DL (0.70-1.30); GLOMERULAR FILTRATION RATE 55.2 (>35); POTASSIUM SERUM 3.8 MEQ/L (3.5-5.1); TOTAL PROTEIN 6.3 GM/DL (6.4-8.2)
== END ==
LOC: M ADAMS 08:33
PROVIDERS: ATTEND Family Medicine
DX: I25.9 Chronic ischemic heart disease, unspecified (principal); N02.9 Recurrent and persistent hematuria with unspecified morphologic changes; E78.5 Hyperlipidemia, unspecified

== ENCOUNTER → 2022-03-13 | Outpatient (REF) | payer MEDICARE | LOC: M LAB REF 12:22 | PROVIDERS: ATTEND Urology | DX: C67.4 Malignant neoplasm of posterior wall of bladder (principal) ==

== ENCOUNTER 2022-06-11 12:32 | Emergency (ER) | payer MEDICARE ==
[~2022-06-11] VITALS: Ht 170.2 cm; Wt 94.0 kg
[2022-06-11 13:30] LABS: BASO # 0.1 10^3/uL (0.0-0.2); BASO % 0.7 % (0.0-1.0); EOS # 0.1 10^3/uL (0.0-0.5); EOS % 1.2 % (0.0-3.0); HEMATOCRIT 51.5 % (42.0-52.0); HEMOGLOBIN 17.2 g/dl (13.5-17.5); LYMPH # 1.6 10^3/uL (1.5-5.0); LYMPH % 23.3 % (24.0-44.0); MEAN CORPUSCULAR HGB CONC 33.4 g/dl (32.0-36.5); MEAN CORPUSCULAR VOLUME 89.9 fl (80.0-96.0); MONO # 0.8 10^3/uL (0.0-0.8); MONO % 11.7 % (2.0-8.0); NEUTROPHILS # 4.2 10^3/uL (1.5-8.5); NEUTROPHILS % 62.7 % (36.0-66.0); PLATELET COUNT, AUTOMATED 248 10^3/uL (150-450); RED BLOOD COUNT 5.73 10^6/uL (4.30-6.10); WHITE BLOOD COUNT 6.7 10^3/uL (4.0-10.0)
[2022-06-11] MEDS ORDERED: CARVedilol 6.25 MG TAB PO ONE (13:45)
[2022-06-11 14:07] LABS: CK-MB VALUE MASS 1.6 NG/ML (<3.6); MB/CK RELATIVE INDEX 1.98 (< OR =4)
[2022-06-11 14:09] LABS: RSV AMPLIFICATION NEGATIVE (NEGATIVE)
[2022-06-11 14:13] LABS: ALBUMIN 3.9 GM/DL (3.2-5.2); BILIRUBIN,DIRECT 0.3 MG/DL (0.0-0.2); BILIRUBIN,TOTAL 1.2 MG/DL (0.2-1.0); CALCIUM LEVEL 8.9 MG/DL (8.8-10.2); CREATININE FOR GFR 1.27 MG/DL (0.70-1.30); GLOMERULAR FILTRATION RATE 57.1 (>35); MAGNESIUM LEVEL 2.2 MG/DL (1.8-2.4); POTASSIUM SERUM 3.9 MEQ/L (3.5-5.1); THYROID STIMULATING HORMONE 1.35 uIU/ML (0.358-3.740)
[2022-06-11 14:32] VITALS: BP 162/101
[2022-06-11 15:28] LABS: CK-MB VALUE MASS 1.3 NG/ML (<3.6); MB/CK RELATIVE INDEX 1.83 (< OR =4)
[2022-06-11] MEDS ORDERED: LABETALOL 100MG/20ML VIAL IV STA (15:37)
[2022-06-11 16:08] VITALS: BP 148/92
== END 2022-06-11 16:43 | disposition home or self-care (01) ==
LOC: M ED 12:32
DX: R42 Dizziness and giddiness (principal); I44.0 Atrioventricular block, first degree; I25.10 Atherosclerotic heart disease of native coronary artery without angina pectoris; I10 Essential (primary) hypertension; E78.5 Hyperlipidemia, unspecified; N40.0 Benign prostatic hyperplasia without lower urinary tract symptoms; E80.4 Gilbert syndrome; Z85.51 Personal history of malignant neoplasm of bladder; Z85.820 Personal history of malignant melanoma of skin; M51.9 Unspecified thoracic, thoracolumbar and lumbosacral intervertebral disc disorder; H81.20 Vestibular neuronitis, unspecified ear; Z95.1 Presence of aortocoronary bypass graft; Z87.891 Personal history of nicotine dependence; Z79.82 Long term (current) use of aspirin; Z79.899 Other long term (current) drug therapy; Z88.0 Allergy status to penicillin; Z88.2 Allergy status to sulfonamides; Z88.8 Allergy status to other drugs, medicaments and biological substances

== ENCOUNTER → 2022-06-16 | Outpatient (REF) | payer MEDICARE | LOC: M SFHCADAM 09:41 | PROVIDERS: ATTEND Family Medicine | DX: C67.9 Malignant neoplasm of bladder, unspecified (principal); I25.9 Chronic ischemic heart disease, unspecified; E78.5 Hyperlipidemia, unspecified; Z53.8 Procedure and treatment not carried out for other reasons ==

== ENCOUNTER → 2022-07-13 | Outpatient (REF) | payer MEDICARE ==
[2022-07-13 15:08] LABS: HEMATOCRIT 51.9 % (42.0-52.0); HEMOGLOBIN 16.6 g/dl (13.5-17.5); MEAN CORPUSCULAR HEMOGLOBIN 29.7 pg (27.0-33.0); PLATELET COUNT, AUTOMATED 253 10^3/uL (150-450); RED BLOOD COUNT 5.58 10^6/uL (4.30-6.10); WHITE BLOOD COUNT 6.2 10^3/uL (4.0-10.0)
[2022-07-13 15:52] LABS: ALBUMIN 3.8 GM/DL (3.2-5.2); BILIRUBIN,TOTAL 1.1 MG/DL (0.2-1.0); CALCIUM LEVEL 9.2 MG/DL (8.8-10.2); CHOLESTEROL RISK RATIO 4.209 (<5); CREATININE FOR GFR 1.29 MG/DL (0.70-1.30); GLOMERULAR FILTRATION RATE 56.1 (>35); POTASSIUM SERUM 3.7 MEQ/L (3.5-5.1); TOTAL PROTEIN 6.5 GM/DL (6.4-8.2)
== END ==
LOC: M LABDRWAD 14:40
PROVIDERS: ATTEND Family Medicine
DX: C67.9 Malignant neoplasm of bladder, unspecified (principal); I25.9 Chronic ischemic heart disease, unspecified; E78.5 Hyperlipidemia, unspecified

== ENCOUNTER → 2022-11-16 | Outpatient (REF) | payer MEDICARE | LOC: M SFHCADAM 09:43 | PROVIDERS: ATTEND Family Medicine | DX: R73.03 Prediabetes (principal); E78.5 Hyperlipidemia, unspecified; I25.9 Chronic ischemic heart disease, unspecified ==

== ENCOUNTER → 2022-11-20 | Outpatient (REF) | payer MEDICARE ==
[2022-11-20 16:43] LABS: HEMATOCRIT 49.7 % (42.0-52.0); HEMOGLOBIN 15.9 g/dl (13.5-17.5); MEAN CORPUSCULAR HEMOGLOBIN 29.6 pg (27.0-33.0); MEAN CORPUSCULAR VOLUME 92.4 fl (80.0-96.0); PLATELET COUNT, AUTOMATED 249 10^3/uL (150-450); RED BLOOD COUNT 5.38 10^6/uL (4.30-6.10); WHITE BLOOD COUNT 6.3 10^3/uL (4.0-10.0)
[2022-11-20 17:01] LABS: HEMOGLOBIN A1c 5.8 % (4.0-6.0)
[2022-11-20 17:08] LABS: ALBUMIN 3.6 G/DL (3.2-5.2); BILIRUBIN,TOTAL 1.3 MG/DL (0.3-1.2); CALCIUM LEVEL 8.9 MG/DL (8.3-10.6); CHOLESTEROL RISK RATIO 4.22 (<5); CREATININE FOR GFR 1.32 MG/DL (0.70-1.30); GLOMERULAR FILTRATION RATE 54.6 (>35); HDL CHOLESTEROL 40.9 MG/DL (>40); LDL CHOLESTEROL 102.5 MG/DL (<100); TOTAL PROTEIN 6.2 G/DL (5.7-8.2)
== END ==
LOC: M SFHCADAM 12:49
PROVIDERS: ATTEND Family Medicine
DX: R73.03 Prediabetes (principal); E78.5 Hyperlipidemia, unspecified; I25.9 Chronic ischemic heart disease, unspecified

== ENCOUNTER 2023-03-09 00:30 | Emergency (ER) | payer MEDICARE ==
[~2023-03-09] VITALS: Ht 167.6 cm; Wt 90.9 kg
[2023-03-09 02:21] LABS: BASO # 0.1 10^3/uL (0.0-0.2); BASO % 0.7 % (0.0-1.0); EOS # 0.1 10^3/uL (0.0-0.5); EOS % 0.5 % (0.0-3.0); HEMATOCRIT 46.5 % (42.0-52.0); HEMOGLOBIN 15.6 g/dl (13.5-17.5); LYMPH % 8.8 % (24.0-44.0); MEAN CORPUSCULAR HEMOGLOBIN 30.4 pg (27.0-33.0); MEAN CORPUSCULAR HGB CONC 33.5 g/dl (32.0-36.5); MEAN CORPUSCULAR VOLUME 90.5 fl (80.0-96.0); MONO # 0.7 10^3/uL (0.0-0.8); MONO % 6.8 % (2.0-8.0); NEUTROPHILS # 8.9 10^3/uL (1.5-8.5); NEUTROPHILS % 82.8 % (36.0-66.0); PLATELET COUNT, AUTOMATED 235 10^3/uL (150-450); RED BLOOD COUNT 5.14 10^6/uL (4.30-6.10); WHITE BLOOD COUNT 10.8 10^3/uL (4.0-10.0)
[2023-03-09 02:42] LABS: ALBUMIN 3.6 G/DL (3.2-5.2); BILIRUBIN,DIRECT 0.3 MG/DL (<0.4)
[2023-03-09] MEDS ORDERED: MORPHINE 2 MG/ML 1ML VIAL IV ONE (05:35)
[2023-03-09 08:06] VITALS: TEMP 97.8
[2023-03-09] MEDS ORDERED: CIPROFLOXACIN 400 MG in IV 1 EA IV ONE (09:35)
[2023-03-09] MEDS ORDERED: NORCO, ANEXSIA 5/325MG TABLET (HYDROcodone/ACETAMINOPHEN) PO ONE (09:40)
[2023-03-09 10:30] VITALS: BP 155/89
[2023-03-09 10:45] VITALS: O2SAT 97
== END 2023-03-09 11:07 | disposition home or self-care (01) ==
LOC: M ED 00:30 → EDBD 00:30 → M ED 11:07
DX: R31.9 Hematuria, unspecified (principal); I10 Essential (primary) hypertension; N40.1 Benign prostatic hyperplasia with lower urinary tract symptoms; C61 Malignant neoplasm of prostate; F10.10 Alcohol abuse, uncomplicated; C67.9 Malignant neoplasm of bladder, unspecified; Z88.0 Allergy status to penicillin; Z88.2 Allergy status to sulfonamides; Z88.8 Allergy status to other drugs, medicaments and biological substances; Z79.82 Long term (current) use of aspirin; Z79.899 Other long term (current) drug therapy
CPT/HCPCS: 74176; 80047; 80076; 81000; 81015; 83605; 83690; 85025; 87040; 87086; 96365; 96375; 99285; J0744

== ENCOUNTER → 2023-03-13 | Outpatient (REF) | payer MEDICARE ==
[2023-03-13 16:28] LABS: HEMATOCRIT 50.6 % (42.0-52.0); HEMOGLOBIN 16.5 g/dl (13.5-17.5); MEAN CORPUSCULAR HEMOGLOBIN 29.8 pg (27.0-33.0); MEAN CORPUSCULAR HGB CONC 32.6 g/dl (32.0-36.5); MEAN CORPUSCULAR VOLUME 91.3 fl (80.0-96.0); PLATELET COUNT, AUTOMATED 285 10^3/uL (150-450); RED BLOOD COUNT 5.54 10^6/uL (4.30-6.10); WHITE BLOOD COUNT 6.4 10^3/uL (4.0-10.0)
[2023-03-13 16:59] LABS: CREATININE FOR GFR 1.25 MG/DL (0.70-1.30); POTASSIUM SERUM 3.8 MMOL/L (3.5-5.1)
== END ==
LOC: M SFHCADAM 13:49
PROVIDERS: ATTEND Family Medicine
DX: R31.0 Gross hematuria (principal); I25.9 Chronic ischemic heart disease, unspecified; I11.9 Hypertensive heart disease without heart failure

== ENCOUNTER → 2023-11-28 | Outpatient (CLI) | payer MEDICARE | LOC: M PLALAB 09:33 | PROVIDERS: ATTEND Family Medicine | DX: I11.9 Hypertensive heart disease without heart failure (principal); M77.9 Enthesopathy, unspecified; I25.9 Chronic ischemic heart disease, unspecified; R73.03 Prediabetes ==

== ENCOUNTER → 2024-03-05 | Outpatient (CLI) | payer MEDICARE ==
[~2024-03-05] MED LIST changes: -GARL500C2 PO; +GARL500C6 PO
[2024-03-05 12:45] LABS: HEMATOCRIT 42.6 % (42.0-52.0); HEMOGLOBIN 13.6 g/dl (13.5-17.5); MEAN CORPUSCULAR HEMOGLOBIN 29.1 pg (27.0-33.0); MEAN CORPUSCULAR HGB CONC 31.9 g/dl (32.0-36.5); MEAN CORPUSCULAR VOLUME 91.2 fl (80.0-96.0); PLATELET COUNT, AUTOMATED 306 10^3/uL (150-450); RED BLOOD COUNT 4.67 10^6/uL (4.30-6.10); WHITE BLOOD COUNT 6.5 10^3/uL (4.0-10.0)
[2024-03-05 13:23] LABS: ALBUMIN 3.3 G/DL (3.2-5.2); BILIRUBIN,TOTAL 0.7 MG/DL (0.3-1.2); CALCIUM LEVEL 9.2 MG/DL (8.3-10.6); CHOLESTEROL RISK RATIO 4.04 (<5); CREATININE FOR GFR 1.77 MG/DL (0.70-1.30); GLOMERULAR FILTRATION RATE 38.8 (>35); HDL CHOLESTEROL 40.5 MG/DL (>40); LDL CHOLESTEROL 103.1 MG/DL (<100); NON-HDL-C 123.5 MG/DL; POTASSIUM SERUM 3.7 MMOL/L (3.5-5.1); TOTAL PROTEIN 6.3 G/DL (5.7-8.2)
[2024-03-05 13:27] LABS: HEMOGLOBIN A1c 5.4 % (4.0-6.0)
== END ==
LOC: M WUC 09:25
PROVIDERS: ATTEND Family Medicine
DX: I25.9 Chronic ischemic heart disease, unspecified (principal); I11.9 Hypertensive heart disease without heart failure; C67.9 Malignant neoplasm of bladder, unspecified; R73.03 Prediabetes

== ENCOUNTER 2024-03-19 21:13 | Emergency (ER) | payer MEDICARE ==
[~2024-03-19] VITALS: Ht 172.7 cm; Wt 88.6 kg
[2024-03-19 21:28] VITALS: TEMP 98.1
[2024-03-19 22:15] VITALS: BP 162/87; O2SAT 95
[2024-03-19] MEDS: DOCUSATE SODIUM 100MG CAPSULE PO ONE (22:28)
== END 2024-03-19 22:30 | disposition home or self-care (01) ==
LOC: M ED 21:13 → EDBD 21:13 → M ED 22:30
DX: R33.9 Retention of urine, unspecified (principal); I10 Essential (primary) hypertension; E78.5 Hyperlipidemia, unspecified; K21.9 Gastro-esophageal reflux disease without esophagitis; F10.10 Alcohol abuse, uncomplicated; Z85.46 Personal history of malignant neoplasm of prostate; Z87.442 Personal history of urinary calculi; Z85.51 Personal history of malignant neoplasm of bladder; Z92.3 Personal history of irradiation; Z79.82 Long term (current) use of aspirin; Z79.899 Other long term (current) drug therapy; Z88.0 Allergy status to penicillin; Z88.2 Allergy status to sulfonamides; Z88.8 Allergy status to other drugs, medicaments and biological substances

== ENCOUNTER → 2024-04-22 | Outpatient (CLI) | payer MEDICARE ==
[~2024-04-22] MED LIST changes: +ASPI81TA26 PO; +CEFD300CAP PO; +MAGN400T2 PO; +PROBCAP14 PO; +THERTAB52 PO; +XALA0.007 OU
== END ==
LOC: M ADAMS 09:14
PROVIDERS: ATTEND Family Medicine
DX: I27.20 Pulmonary hypertension, unspecified (principal); I25.9 Chronic ischemic heart disease, unspecified; I50.9 Heart failure, unspecified

== ENCOUNTER → 2024-04-22 | Outpatient (REF) | payer MEDICARE ==
[2024-04-22 13:41] LABS: HEMATOCRIT 42.5 % (42.0-52.0); HEMOGLOBIN 13.6 g/dl (13.5-17.5); MEAN CORPUSCULAR HEMOGLOBIN 28.6 pg (27.0-33.0); MEAN CORPUSCULAR VOLUME 89.5 fl (80.0-96.0); PLATELET COUNT, AUTOMATED 306 10^3/uL (150-450); RED BLOOD COUNT 4.75 10^6/uL (4.30-6.10)
[2024-04-22 13:42] LABS: CALCIUM LEVEL 9.1 MG/DL (8.3-10.6); CREATININE FOR GFR 1.69 MG/DL (0.70-1.30); GLOMERULAR FILTRATION RATE 40.9 (>35); POTASSIUM SERUM 4.2 MMOL/L (3.5-5.1)
== END ==
LOC: M SFHCADAM 09:03
PROVIDERS: ATTEND Family Medicine
DX: I25.9 Chronic ischemic heart disease, unspecified (principal); I50.9 Heart failure, unspecified

== ENCOUNTER 2024-05-03 12:41 | Emergency (ER) | payer MEDICARE ==
[~2024-05-03] VITALS: Ht 165.1 cm; Wt 85.9 kg
[2024-05-03 13:31] LABS: BASO # 0.1 10^3/uL (0.0-0.2); BASO % 0.9 % (0.0-1.0); EOS # 0.1 10^3/uL (0.0-0.5); EOS % 0.9 % (0.0-3.0); HEMOGLOBIN 13.4 g/dl (13.5-17.5); LYMPH % 12.4 % (24.0-44.0); MEAN CORPUSCULAR HEMOGLOBIN 29.2 pg (27.0-33.0); MEAN CORPUSCULAR HGB CONC 33.5 g/dl (32.0-36.5); MEAN CORPUSCULAR VOLUME 87.1 fl (80.0-96.0); MONO % 12.6 % (2.0-8.0); NEUTROPHILS % 72.8 % (36.0-66.0); PLATELET COUNT, AUTOMATED 345 10^3/uL (150-450); RED BLOOD COUNT 4.59 10^6/uL (4.30-6.10); WHITE BLOOD COUNT 8.2 10^3/uL (4.0-10.0)
[2024-05-03 13:49] LABS: INR 1.06; PARTIAL THROMBOPLASTIN TIME 30.6 SECONDS (24.8-34.2); PROTHROMBIN TIME 13.4 SECONDS (12.5-14.5)
[2024-05-03 13:55] LABS: ALBUMIN 3.3 G/DL (3.2-5.2); BILIRUBIN,DIRECT 0.3 MG/DL (<0.4); CALCIUM LEVEL 8.9 MG/DL (8.3-10.6); CREATININE FOR GFR 1.8 MG/DL (0.70-1.30); POTASSIUM SERUM 3.9 MMOL/L (3.5-5.1); TOTAL PROTEIN 6.4 G/DL (5.7-8.2)
[2024-05-03 13:56] VITALS: TEMP 98.6
[2024-05-03] MEDS: NS 1,000 ML IV SCH (14:03)
[2024-05-03] MEDS: ACETAMINOPHEN TAB 650MG DOSE (2X325MG) PO ONE (16:17)
[2024-05-03] MEDS: cefTRIAXone SOD 2 GM in D5W MINI-BAG PLUS 50 ML IV ONE (16:17)
[2024-05-03] MEDS ORDERED: CEFD300C PO (17:14)
[2024-05-03 17:26] VITALS: BP 158/86
[2024-05-03 17:30] VITALS: O2SAT 95
[2024-05-07] MEDS ORDERED: FOSF3PAC2 PO (07:21)
== END 2024-05-03 17:42 | disposition home or self-care (01) ==
LOC: M ED 12:41 → EEVIPCON 12:41 → M ED 17:42
DX: N39.0 Urinary tract infection, site not specified (principal); I25.10 Atherosclerotic heart disease of native coronary artery without angina pectoris; I10 Essential (primary) hypertension; N40.0 Benign prostatic hyperplasia without lower urinary tract symptoms; Z85.46 Personal history of malignant neoplasm of prostate; Z85.51 Personal history of malignant neoplasm of bladder; Z85.820 Personal history of malignant melanoma of skin; E80.4 Gilbert syndrome; Z95.1 Presence of aortocoronary bypass graft; Z87.891 Personal history of nicotine dependence; Z79.899 Other long term (current) drug therapy; Z88.0 Allergy status to penicillin; Z88.2 Allergy status to sulfonamides; Z88.8 Allergy status to other drugs, medicaments and biological substances
CPT/HCPCS: 74176; 80048; 80076; 81001; 85025; 85610; 85730; 86850; 86900; 86901; 87088; 87184; 87186; 93041; 96374; 99285; J0696

== ENCOUNTER → 2024-05-14 | Outpatient (REF) | payer MEDICARE ==
[~2024-05-14] MED LIST changes: +CEFD300C PO; +FOSF3PAC2 PO
[2024-05-14 12:46] LABS: HEMATOCRIT 42.1 % (42.0-52.0); HEMOGLOBIN 13.6 g/dl (13.5-17.5); MEAN CORPUSCULAR HEMOGLOBIN 28.7 pg (27.0-33.0); MEAN CORPUSCULAR HGB CONC 32.3 g/dl (32.0-36.5); MEAN CORPUSCULAR VOLUME 88.8 fl (80.0-96.0); PLATELET COUNT, AUTOMATED 312 10^3/uL (150-450); RED BLOOD COUNT 4.74 10^6/uL (4.30-6.10); WHITE BLOOD COUNT 6.4 10^3/uL (4.0-10.0)
[2024-05-14 13:18] LABS: ALBUMIN 3.4 G/DL (3.2-5.2); BILIRUBIN,TOTAL 0.7 MG/DL (0.3-1.2); CALCIUM LEVEL 9.6 MG/DL (8.3-10.6); CREATININE FOR GFR 2.29 MG/DL (0.70-1.30); GLOMERULAR FILTRATION RATE 28.8 (>35); POTASSIUM SERUM 3.6 MMOL/L (3.5-5.1); TOTAL PROTEIN 6.4 G/DL (5.7-8.2)
== END ==
LOC: M SFHCADAM 10:34
PROVIDERS: ATTEND Family Medicine
DX: I50.9 Heart failure, unspecified (principal); C67.9 Malignant neoplasm of bladder, unspecified; N18.31 Chronic kidney disease, stage 3a

== ENCOUNTER → 2024-05-28 | Outpatient (REF) | payer MEDICARE ==
[2024-05-29 13:02] LABS: APPEARANCE, URINE CLOUDY (CLEAR); BACTERIA, URINE AUTO 2+ (NEGATIVE); BILIRUBIN, URINE AUTO NEGATIVE (NEGATIVE); BLOOD, URINE BLOOD 3+ (NEGATIVE); COLOR, URINE AMBER (YELLOW); GLUCOSE, URINE (UA) AUTO NEGATIVE (NEGATIVE); KETONE, URINE AUTO NEGATIVE (NEGATIVE); LEUKOCYTE ESTERASE, URINE AUTO 3+ (NEGATIVE); MUCUS, URINE SMALL (NEGATIVE); NITRITE, URINE AUTO NEGATIVE (NEGATIVE); PROTEIN, URINE AUTO 2+ mg/dL (NEGATIVE); RBC, URINE AUTO TNTC /HPF (0-3); SPECIFIC GRAVITY URINE AUTO 1.009 (1.002-1.035); SQUAMOUS EPITHELIAL CELL UR AU 3 /HPF (0-6); UROBILINOGEN, URINE AUTO 0.2 mg/dL (0.0-2.0); WBC, URINE AUTO TNTC /HPF (0-3)
== END ==
LOC: M SFHCADAM 12:33
PROVIDERS: ATTEND Family Medicine
DX: Z16.12 Extended spectrum beta lactamase (ESBL) resistance (principal)

== ENCOUNTER 2024-06-15 21:00 | Emergency (ER) | payer MEDICARE ==
[~2024-06-15] VITALS: Ht 152.4 cm; Wt 39.2 kg
[~2024-06-15 21:00] MED LIST changes: +COLA100C5 PO; +OXYB5TAB14 PO
[2024-06-15] MEDS: LIDOCAINE 2% 5ML JELLY UROJET TOP ONE (21:20)
[2024-06-15] MEDS: FOSFOMYCIN TROMETHAMINE 3 GM POWDER PACKET (MONUROL) PO ONE (22:10)
[2024-06-15 23:35] VITALS: BP 136/80; TEMP 98.5; O2SAT 93
== END 2024-06-16 02:46 | disposition home or self-care (01) ==
LOC: M ED 21:00
DX: N39.0 Urinary tract infection, site not specified (principal); R33.9 Retention of urine, unspecified; I25.2 Old myocardial infarction; K21.9 Gastro-esophageal reflux disease without esophagitis; E78.5 Hyperlipidemia, unspecified; Z85.46 Personal history of malignant neoplasm of prostate; Z88.0 Allergy status to penicillin; Z88.2 Allergy status to sulfonamides; Z88.8 Allergy status to other drugs, medicaments and biological substances; Z79.810 Long term (current) use of selective estrogen receptor modulators (SERMs); Z79.899 Other long term (current) drug therapy

== ENCOUNTER → 2024-06-18 | Outpatient (REF) | payer MEDICARE ==
[2024-06-18 15:20] LABS: APPEARANCE, URINE MANUAL HAZY (CLEAR); COLOR, URINE MANUAL PINK (YELLOW)
[2024-06-18 15:21] LABS: BILIRUBIN, URINE MANUAL NEGATIVE (NEGATIVE); BLOOD URINE MANUAL POSITIVE (NEGATIVE); GLUCOSE, URINE (UA) MANUAL NEGATIVE (NEGATIVE); KETONE, URINE MANUAL NEGATIVE (NEGATIVE); LEUKOCYTE ESTERASE, URINE MAN POSITIVE (NEGATIVE); NITRITE, URINE MANUAL NEGATIVE (NEGATIVE); PROTEIN, URINE MANUAL TRACE mg/dL (NEGATIVE); SPECIFIC GRAVITY,URINE MANUAL 1.005 (1.002-1.035); UROBILINOGEN, URINE MANUAL NORMAL (NORMAL)
[2024-06-18 15:38] LABS: BACTERIA, URINE NONE SEEN; HYALINE CAST, URINE NONE SEEN /lpf (0-1); RBC, URINE 30-40 /hpf (0-3); SQUAMOUS EPITHELIAL CELL URINE NONE SEEN /hpf (SMALL AMT)
== END ==
LOC: M SMT 14:57
PROVIDERS: ATTEND Urology
DX: Z87.440 Personal history of urinary (tract) infections (principal); Z79.899 Other long term (current) drug therapy

== ENCOUNTER 2024-06-20 08:46 | Emergency (ER) | payer MEDICARE ==
[~2024-06-20] VITALS: Ht 172.7 cm; Wt 82.5 kg
[2024-06-20 08:56] VITALS: BP 159/76; TEMP 97.3; O2SAT 96
[2024-06-20] MEDS: BOOSTRIX VACCINE (TETANUS/DIPHTH/ACEL. PERTUSSIS) 0.5ML SYR IM.IMMUN ONE (10:15)
== END 2024-06-20 10:32 | disposition home or self-care (01) ==
LOC: M ED 08:46
DX: S70.01XA Contusion of right hip, initial encounter (principal); S00.03XA Contusion of scalp, initial encounter; S61.401A Unspecified open wound of right hand, initial encounter; W01.10XA Fall on same level from slipping, tripping and stumbling with subsequent striking against unspecified object, initial encounter; Y92.009 Unspecified place in unspecified non-institutional (private) residence as the place of occurrence of the external cause; Y93.9 Activity, unspecified; Y99.9 Unspecified external cause status; I25.10 Atherosclerotic heart disease of native coronary artery without angina pectoris; I12.9 Hypertensive chronic kidney disease with stage 1 through stage 4 chronic kidney disease, or unspecified chronic kidney disease; E78.5 Hyperlipidemia, unspecified; Z95.1 Presence of aortocoronary bypass graft; Z85.46 Personal history of malignant neoplasm of prostate; Z79.899 Other long term (current) drug therapy; Z88.0 Allergy status to penicillin; Z88.2 Allergy status to sulfonamides; Z88.8 Allergy status to other drugs, medicaments and biological substances

== ENCOUNTER 2024-06-28 17:14 | Emergency (ER) | payer MEDICARE ==
[~2024-06-28] VITALS: Ht 160 cm; Wt 83.5 kg
[2024-06-28] MEDS ORDERED: cefTRIAXone SOD 1 GM in D5W MINI-BAG PLUS 50 ML IV ONE (18:30)
[2024-06-28] MEDS ORDERED: LIDOCAINE 2% JELLY 6ML SYRINGE TOP ONE (19:40)
[2024-06-28 21:30] VITALS: BP 162/81; TEMP 97.9; O2SAT 96
== END 2024-06-28 21:31 | disposition home or self-care (01) ==
LOC: M ED 17:14
DX: N47.2 Paraphimosis (principal); Z96.0 Presence of urogenital implants; I10 Essential (primary) hypertension; N40.1 Benign prostatic hyperplasia with lower urinary tract symptoms; R33.9 Retention of urine, unspecified; Z79.899 Other long term (current) drug therapy; Z88.0 Allergy status to penicillin; Z88.2 Allergy status to sulfonamides; Z88.8 Allergy status to other drugs, medicaments and biological substances

== ENCOUNTER 2024-06-30 13:49 | Emergency (ER) | payer MEDICARE ==
[~2024-06-30] VITALS: Ht 160 cm; Wt 82.5 kg
[2024-06-30 13:58] VITALS: BP 107/55; TEMP 97.8; O2SAT 97
[2024-06-30] MEDS ORDERED: TRAM50TA2 (14:00)
[2024-06-30] MEDS ORDERED: ASPI81CH33 PO (14:00)
[2024-06-30] MEDS: NORCO, ANEXSIA 5/325MG TABLET (HYDROcodone/ACETAMINOPHEN) PO ONE (17:15)
[2024-06-30 17:23] LABS: BASO # 0.1 10^3/uL (0.0-0.2); BASO % 0.6 % (0.0-1.0); EOS # 0.1 10^3/uL (0.0-0.5); EOS % 1.4 % (0.0-3.0); HEMATOCRIT 36.1 % (42.0-52.0); HEMOGLOBIN 11.7 g/dl (13.5-17.5); LYMPH # 1.1 10^3/uL (1.5-5.0); LYMPH % 12.1 % (24.0-44.0); MEAN CORPUSCULAR HEMOGLOBIN 27.9 pg (27.0-33.0); MEAN CORPUSCULAR HGB CONC 32.4 g/dl (32.0-36.5); MEAN CORPUSCULAR VOLUME 86.2 fl (80.0-96.0); MONO # 1.1 10^3/uL (0.0-0.8); NEUTROPHILS # 6.7 10^3/uL (1.5-8.5); NEUTROPHILS % 73.3 % (36.0-66.0); PLATELET COUNT, AUTOMATED 363 10^3/uL (150-450); RED BLOOD COUNT 4.19 10^6/uL (4.30-6.10); WHITE BLOOD COUNT 9.1 10^3/uL (4.0-10.0)
[2024-06-30 17:35] LABS: CALCIUM LEVEL 9.5 MG/DL (8.3-10.6); CREATININE FOR GFR 2.17 MG/DL (0.70-1.30); GLOMERULAR FILTRATION RATE 30.6 (>35); POTASSIUM SERUM 5.1 MMOL/L (3.5-5.1)
[2024-06-30] MEDS ORDERED: CIPR-249 PO (17:51)
== END 2024-06-30 18:19 | disposition home or self-care (01) ==
LOC: M ED 13:49
DX: N30.00 Acute cystitis without hematuria (principal); N47.1 Phimosis; I51.9 Heart disease, unspecified; I10 Essential (primary) hypertension; N40.1 Benign prostatic hyperplasia with lower urinary tract symptoms; Z87.891 Personal history of nicotine dependence; Z85.51 Personal history of malignant neoplasm of bladder; Z95.1 Presence of aortocoronary bypass graft; Z79.82 Long term (current) use of aspirin; Z79.899 Other long term (current) drug therapy; Z88.0 Allergy status to penicillin; Z88.2 Allergy status to sulfonamides; Z88.8 Allergy status to other drugs, medicaments and biological substances

== ENCOUNTER → 2024-07-17 | Outpatient (REF) | payer MEDICARE ==
[~2024-07-17] MED LIST changes: +ASPI81CH33 PO; +CIPR-249 PO; +TRAM50TA2
[2024-07-17 18:17] LABS: AMORPHOUS SEDIMENT SMALL (NEGATIVE); APPEARANCE, URINE CLOUDY (CLEAR); BACTERIA, URINE AUTO 1+ (NEGATIVE); BILIRUBIN, URINE AUTO NEGATIVE (NEGATIVE); BLOOD, URINE BLOOD 3+ (NEGATIVE); COLOR, URINE AMBER (YELLOW); GLUCOSE, URINE (UA) AUTO NEGATIVE (NEGATIVE); KETONE, URINE AUTO NEGATIVE (NEGATIVE); LEUKOCYTE ESTERASE, URINE AUTO 3+ (NEGATIVE); MUCUS, URINE SMALL (NEGATIVE); NITRITE, URINE AUTO POSITIVE (NEGATIVE); PROTEIN, URINE AUTO 2+ mg/dL (NEGATIVE); RBC, URINE AUTO TNTC /HPF (0-3); SPECIFIC GRAVITY URINE AUTO 1.009 (1.002-1.035); SQUAMOUS EPITHELIAL CELL UR AU 0 /HPF (0-6); UROBILINOGEN, URINE AUTO 0.2 mg/dL (0.0-2.0); WBC, URINE AUTO TNTC /HPF (0-3)
== END ==
LOC: M SMT 16:53
PROVIDERS: ATTEND Urology
DX: Z87.440 Personal history of urinary (tract) infections (principal)

== ENCOUNTER → 2024-07-21 | Outpatient (CLI) | payer MEDICARE ==
[2024-07-21 17:20] LABS: HEMATOCRIT 36.6 % (42.0-52.0); HEMOGLOBIN 11.7 g/dl (13.5-17.5); MEAN CORPUSCULAR HEMOGLOBIN 27.5 pg (27.0-33.0); MEAN CORPUSCULAR VOLUME 86.1 fl (80.0-96.0); PLATELET COUNT, AUTOMATED 471 10^3/uL (150-450); RED BLOOD COUNT 4.25 10^6/uL (4.30-6.10); WHITE BLOOD COUNT 9.1 10^3/uL (4.0-10.0)
[2024-07-21 18:04] LABS: ALBUMIN 2.9 G/DL (3.2-5.2); BILIRUBIN,TOTAL 0.5 MG/DL (0.3-1.2); CALCIUM LEVEL 9.2 MG/DL (8.3-10.6); CREATININE FOR GFR 2.76 MG/DL (0.70-1.30); GLOMERULAR FILTRATION RATE 23.2 (>35); POTASSIUM SERUM 4.1 MMOL/L (3.5-5.1); TOTAL PROTEIN 6.5 G/DL (5.7-8.2)
== END ==
LOC: M WUC 14:17
PROVIDERS: ATTEND Urology
DX: Z87.440 Personal history of urinary (tract) infections (principal)

== ENCOUNTER 2024-07-31 10:40 | Day surgery (SDC) | payer MEDICARE ==
[~2024-07-31] VITALS: Ht 167.6 cm; Wt 77.1 kg
[~2024-07-31 10:40] MED LIST changes: +DOCU100C16 PO; +SPIR-10 PO; +TAMS1CAP17 PO; -TRAM50TA2; +TRAM50TA2 PO; +VITA500C24 PO
[2024-07-31] MEDS: NS 1,000 ML IV SCH (12:30)
[2024-07-31] MEDS ORDERED: LIDOCAINE 2% 100MG/5ML SDV (FOR ANES.) As Ordered ONE (13:16)
[2024-07-31] MEDS ORDERED: propofoL 200 MG/20 ML VIAL As Ordered ONE (13:16)
[2024-07-31] MEDS ORDERED: ONDANSETRON 4MG 2ML VIAL As Ordered ONE (13:16)
[2024-07-31] MEDS ORDERED: fentaNYL 100 MCG/2 ML INJECTION As Ordered ONE (13:16)
[2024-07-31] MEDS ORDERED: ACETAMINOPHEN 1000MG/100ML IV BAG As Ordered ONE (13:23)
[2024-07-31] MEDS: ceFAZolin SOD 2 GM in IV 1 EA IV ONE (13:50)
[2024-07-31] MEDS ORDERED: ePHEDrine SULFATE 25 MG/5 ML(5MG/ML) SYRINGE As Ordered ONE (13:53)
[2024-07-31] MEDS ORDERED: PHENYLephrine 500MCG 5ML (100MCG/ML) SYRINGE As Ordered ONE (13:53)
[2024-07-31] MEDS: ISOVUE-300 61% 100ML VIAL As Ordered ONE (14:00)
[2024-07-31] MEDS ORDERED: ONDANSETRON 4MG 2ML VIAL IV PRN (15:10)
[2024-07-31] MEDS ORDERED: NS 1,000 ML IV SCH (15:10)
[2024-07-31] MEDS ORDERED: oxyCODONE 5MG TAB PO PRN (15:10)
[2024-07-31] MEDS ORDERED: fentaNYL 100 MCG/2 ML INJECTION IV PRN (15:10)
[2024-07-31] MEDS ORDERED: HYDROMORPHONE HCL 0.5 MG/ 0.5 ML SYRINGE IV PRN (15:10)
[2024-07-31] MEDS ORDERED: LEVO1TAB39 PO (15:21)
[2024-07-31 16:40] VITALS: BP 129/73; TEMP 98.1; O2SAT 98
== END 2024-07-31 17:06 | disposition home or self-care (01) ==
LOC: M SDC 10:40
PROVIDERS: ATTEND Urology
DX: R82.89 Other abnormal findings on cytological and histological examination of urine (principal); R31.0 Gross hematuria; Z85.51 Personal history of malignant neoplasm of bladder; R07.9 Chest pain, unspecified; I25.10 Atherosclerotic heart disease of native coronary artery without angina pectoris; I25.2 Old myocardial infarction; Z88.0 Allergy status to penicillin; Z88.2 Allergy status to sulfonamides; Z88.8 Allergy status to other drugs, medicaments and biological substances; Z79.899 Other long term (current) drug therapy; Z87.891 Personal history of nicotine dependence
CPT/HCPCS: 52332; 52354; 76000; 88108; 88305; C1769; C1894; C2617; J0131; J0690; J1100; J2371; J2405; J3010; Q9967

== ENCOUNTER → 2024-11-05 | Outpatient (CLI) | payer MEDICARE ==
[~2024-11-05] MED LIST changes: +LEVO1TAB39 PO
== END ==
LOC: M ADAMS 10:11
PROVIDERS: ATTEND Urology
DX: Z96.0 Presence of urogenital implants (principal)

== ENCOUNTER → 2024-11-05 | Outpatient (REF) | payer MEDICARE ==
[2024-11-05 14:26] LABS: ALBUMIN 2.9 G/DL (3.2-5.2); BILIRUBIN,TOTAL 0.3 MG/DL (0.3-1.2); CALCIUM LEVEL 8.3 MG/DL (8.3-10.6); CREATININE FOR GFR 2.79 MG/DL (0.70-1.30); GLOMERULAR FILTRATION RATE 22.9 (>35); POTASSIUM SERUM 5.3 MMOL/L (3.5-5.1); TOTAL PROTEIN 6.4 G/DL (5.7-8.2)
[2024-11-05 14:27] LABS: HEMATOCRIT 34.7 % (42.0-52.0); HEMOGLOBIN 10.6 g/dl (13.5-17.5); MEAN CORPUSCULAR HEMOGLOBIN 26.6 pg (27.0-33.0); MEAN CORPUSCULAR HGB CONC 30.5 g/dl (32.0-36.5); PLATELET COUNT, AUTOMATED 387 10^3/uL (150-450); RED BLOOD COUNT 3.99 10^6/uL (4.30-6.10); WHITE BLOOD COUNT 9.9 10^3/uL (4.0-10.0)
== END ==
LOC: M SFHCADAM 09:52
PROVIDERS: ATTEND Urology
DX: Z96.0 Presence of urogenital implants (principal)

== ENCOUNTER 2024-12-02 10:24 | Day surgery (SDC) | payer MEDICARE ==
[~2024-12-02] VITALS: Ht 167.6 cm; Wt 75.3 kg
[~2024-12-02 10:24] MED LIST changes: +TRAZ1TAB11 PO
[2024-12-02] MEDS ORDERED: LR 1,000 ML IV SCH ×2 (10:45→13:40)
[2024-12-02] MEDS ORDERED: propofoL 200 MG/20 ML VIAL As Ordered ONE (11:47)
[2024-12-02] MEDS ORDERED: fentaNYL 100 MCG/2 ML INJECTION As Ordered ONE (11:48)
[2024-12-02] MEDS: ceFAZolin SOD 2 GM IV ONCE IV ONE (12:52)
[2024-12-02] MEDS ORDERED: ACETAMINOPHEN 1000MG/100ML IV BAG As Ordered ONE (13:16)
[2024-12-02] MEDS ORDERED: ONDANSETRON 4MG 2ML VIAL As Ordered ONE (13:17)
[2024-12-02] MEDS: ISOVUE-300 61% 100ML VIAL As Ordered ONE (13:30)
[2024-12-02] MEDS ORDERED: ONDANSETRON 4MG 2ML VIAL IV PRN (13:40)
[2024-12-02] MEDS ORDERED: HYDROMORPHONE HCL 0.5 MG/ 0.5 ML SYRINGE IV PRN (13:40)
[2024-12-02] MEDS ORDERED: fentaNYL 100 MCG/2 ML INJECTION IV PRN (13:40)
[2024-12-02] MEDS ORDERED: oxyCODONE 5MG TAB PO PRN (13:40)
[2024-12-02] MEDS ORDERED: MACR100C43 PO (13:44)
[2024-12-02 14:45] VITALS: BP 123/65; TEMP 97.7; O2SAT 97
== END 2024-12-02 15:27 | disposition home or self-care (01) ==
LOC: M SDC 10:24
PROVIDERS: ATTEND Urology
DX: N28.89 Other specified disorders of kidney and ureter (principal); N13.39 Other hydronephrosis; C68.0 Malignant neoplasm of urethra; Z85.51 Personal history of malignant neoplasm of bladder; I25.10 Atherosclerotic heart disease of native coronary artery without angina pectoris; I25.2 Old myocardial infarction; Z88.0 Allergy status to penicillin; Z88.2 Allergy status to sulfonamides; Z79.899 Other long term (current) drug therapy
CPT/HCPCS: 52224; 52332; 76000; C1769; C2617; J0131; J0690; J1100; J2405; J3010; Q9967

== ENCOUNTER → 2024-12-12 | Outpatient (CLI) | payer MEDICARE ==
[~2024-12-12] MED LIST changes: +MACR100C43 PO; +MUPI2OI TOP; +TRAZ-186 PO
[2024-12-12 16:42] LABS: BASO % 0.3 % (0.0-1.0); EOS # 0.1 10^3/uL (0.0-0.5); EOS % 0.3 % (0.0-3.0); HEMATOCRIT 30.5 % (42.0-52.0); HEMOGLOBIN 9.5 g/dl (13.5-17.5); LYMPH # 1.7 10^3/uL (1.5-5.0); LYMPH % 10.9 % (24.0-44.0); MEAN CORPUSCULAR HEMOGLOBIN 25.8 pg (27.0-33.0); MEAN CORPUSCULAR HGB CONC 31.1 g/dl (32.0-36.5); MEAN CORPUSCULAR VOLUME 82.9 fl (80.0-96.0); MONO # 1.2 10^3/uL (0.0-0.8); MONO % 7.4 % (2.0-8.0); NEUTROPHILS # 12.4 10^3/uL (1.5-8.5); NEUTROPHILS % 77.9 % (36.0-66.0); PLATELET COUNT, AUTOMATED 297 10^3/uL (150-450); RED BLOOD COUNT 3.68 10^6/uL (4.30-6.10); WHITE BLOOD COUNT 15.9 10^3/uL (4.0-10.0)
[2024-12-12 16:46] LABS: ERYTHROCYTE SEDIMENTATION RATE 103 mm/hr (0-20)
[2024-12-12 17:11] LABS: ALBUMIN 2.2 G/DL (3.2-5.2); BILIRUBIN,TOTAL 0.7 MG/DL (0.3-1.2); CALCIUM LEVEL 7.7 MG/DL (8.3-10.6); CREATININE FOR GFR 3.23 MG/DL (0.70-1.30); GLOMERULAR FILTRATION RATE 19.4 (>35); POTASSIUM SERUM 4.4 MMOL/L (3.5-5.1); TOTAL PROTEIN 5.9 G/DL (5.7-8.2)
[2024-12-12 17:23] LABS: PROCALCITONIN 0.47 ng/ml
[2024-12-12 17:59] LABS: C REACTIVE PROTEIN QUANTITATIV 17.3 MG/DL (<1.0)
== END ==
LOC: M RAD 15:33
PROVIDERS: ATTEND Physician Assistant
DX: I95.9 Hypotension, unspecified (principal); R05.8 Other specified cough; R06.02 Shortness of breath; R53.1 Weakness

== ENCOUNTER 2024-12-16 14:38 | Observation (INO) | payer MEDICARE ==
[~2024-12-16] VITALS: Ht 167.6 cm; Wt 78.2 kg
[~2024-12-16 14:38] MED LIST changes: -TRAZ-186 PO
[2024-12-16 15:07] LABS: BASO % 0.2 % (0.0-1.0); EOS # 0.1 10^3/uL (0.0-0.5); EOS % 0.5 % (0.0-3.0); HEMATOCRIT 26.6 % (42.0-52.0); HEMOGLOBIN 8.5 g/dl (13.5-17.5); LYMPH # 1.4 10^3/uL (1.5-5.0); LYMPH % 12.1 % (24.0-44.0); MEAN CORPUSCULAR HEMOGLOBIN 26.4 pg (27.0-33.0); MEAN CORPUSCULAR VOLUME 82.6 fl (80.0-96.0); MONO # 0.9 10^3/uL (0.0-0.8); MONO % 7.7 % (2.0-8.0); NEUTROPHILS # 8.9 10^3/uL (1.5-8.5); NEUTROPHILS % 76.3 % (36.0-66.0); PLATELET COUNT, AUTOMATED 212 10^3/uL (150-450); RED BLOOD COUNT 3.22 10^6/uL (4.30-6.10); WHITE BLOOD COUNT 11.6 10^3/uL (4.0-10.0)
[2024-12-16 15:29] LABS: ALBUMIN 1.8 G/DL (3.2-5.2); BILIRUBIN,DIRECT 0.3 MG/DL (<0.4); BILIRUBIN,TOTAL 0.5 MG/DL (0.3-1.2); CALCIUM LEVEL 7.5 MG/DL (8.3-10.6); CREATININE FOR GFR 3.94 MG/DL (0.70-1.30); GLOMERULAR FILTRATION RATE 15.4 (>35); POTASSIUM SERUM 4.6 MMOL/L (3.5-5.1); TOTAL PROTEIN 5.3 G/DL (5.7-8.2)
[2024-12-16 15:32] LABS: THYROID STIMULATING HORMONE 2.262 uIU/ML (0.55-4.78)
[2024-12-16] MEDS: NS (Normal Saline) 0.9% 1,000 ML IV ONE (17:16)
[2024-12-16] MEDS: BISACODYL 10MG SUPP PR ONE (17:16)
[2024-12-16] MEDS ORDERED: TRAZ-186 PO (18:20)
[2024-12-16] MEDS ORDERED: HOME MED LIST COMPLETE! XX SCH (18:25)
[2024-12-16] MEDS ORDERED: ONDANSETRON 4MG 2ML VIAL IV PRN (19:25)
[2024-12-16] MEDS ORDERED: HYOSCYAMINE SULFATE 0.125 MG SUBL TABLET PO PRN (19:25)
[2024-12-16] MEDS ORDERED: BISACODYL 10MG SUPP PR PRN (19:25)
[2024-12-16] MEDS ORDERED: FLEET ENEMA PR PRN (19:25)
[2024-12-16] MEDS: FLEET ENEMA PR ONE (20:17)
[2024-12-16] MEDS: MORPHINE 10MG/0.5ML ORAL CONCENTRATE SOLUTION U/D SL PRN (20:48)
[2024-12-16 21:12] VITALS: BP 103/61; TEMP 97.5
[2024-12-16] MEDS: LATANOPROST 0.005% OPHTH SOLN 2.5 ML OU SCH (21:25)
[2024-12-16] MEDS: traZODone 50 MG TAB PO SCH (21:25)
[2024-12-16] MEDS: TAMSULOSIN 0.4 MG CAP PO SCH (21:25)
[2024-12-17 04:46] VITALS: BP 101/61; TEMP 97.9; O2SAT 96
[2024-12-17] MEDS: ACETAMINOPHEN 325 MG TAB PO PRN (12:26)
[2024-12-17] MEDS: MORPHINE 10MG/0.5ML ORAL CONCENTRATE SOLUTION U/D SL SCH (14:28)
[2024-12-17] MEDS: LORazepam 1 MG TAB PO PRN (19:50)
[2024-12-17] MEDS: SCOPOLAMINE 1MG TRANSDERMAL PATCH TOP PRN (20:00)
== END 2024-12-17 21:30 | disposition expired ==
LOC: EDBD 14:38 → M ED 14:38 → M ED INP 14:39 → M MS5PR 20:58
PROVIDERS: ADMIT Internal Medicine Nephrology; ATTEND General Practice
DX: C79.11 Secondary malignant neoplasm of bladder (principal); N13.9 Obstructive and reflux uropathy, unspecified; K59.00 Constipation, unspecified; N17.9 Acute kidney failure, unspecified; N18.9 Chronic kidney disease, unspecified; E43 Unspecified severe protein-calorie malnutrition; R59.0 Localized enlarged lymph nodes; E86.0 Dehydration; L89.152 Pressure ulcer of sacral region, stage 2; D63.1 Anemia in chronic kidney disease; Z87.440 Personal history of urinary (tract) infections; Z96.0 Presence of urogenital implants; I25.10 Atherosclerotic heart disease of native coronary artery without angina pectoris; Z95.1 Presence of aortocoronary bypass graft; C79.19 Secondary malignant neoplasm of other urinary organs; Z85.46 Personal history of malignant neoplasm of prostate; Z92.3 Personal history of irradiation; N30.41 Irradiation cystitis with hematuria; E78.5 Hyperlipidemia, unspecified; I10 Essential (primary) hypertension; R53.1 Weakness; I95.9 Hypotension, unspecified; Z90.2 Acquired absence of lung [part of]; Z79.899 Other long term (current) drug therapy; Z88.0 Allergy status to penicillin; Z88.2 Allergy status to sulfonamides; Z88.8 Allergy status to other drugs, medicaments and biological substances; Z66 Do not resuscitate; Z51.5 Encounter for palliative care
CPT/HCPCS: 74176; 80047; 80048; 80076; 84443; 85025; 93005; 99285; G0378